=== PATIENT | female | born 1995 | race Caucasian/White ===

== ENCOUNTER 2018-01-26 10:17 | Outpatient (RCR) | payer OTHER, MEDICAID, SELFPAY ==
--- NOTE | 2018-01-26 17:11 | PT.OIE ---
Current Diagnoses Dorsalgia, unspecified (01/26/18) Past Medical History (Last Updated 12/16/17 @ 20:25 by Destiney Snyder) Acne (Chronic ~2010) Anxiety (Chronic ~2011) Depression (Chronic ~2011) Post traumatic stress disorder (PTSD) (Chronic ~2015) Past Surgical History (Last Updated 12/16/17 @ 20:25 by Destiney Snyder) Surgical procedure planned (Resolved) Provider Visit Care Team Role Provider Type Lillian Vines DO Attending Provider Physician Primary Care Provider Specialty: [facility] Address: [address] [place] [address], [facility] Email: [email or web address] Physical Therapy Initial Evaluation PT-OP-A Visit Information Start: 01/26/18 08:09 Freq: Status: Active Protocol: Document 01/26/18 10:33 [facility] (Rec: 01/26/18 17:11 [facility] [id number]) Out-Patient Physical Therapy Visit Information Visit Information Visit Type Initial Evaluation Visit Start Time 10:30 Visit Stop Time 11:15 Total Visit Minutes 45 Visit Number 1 Number of EDGER RUNNER Visits 0 PT-OP-B Current Condition Start: 01/26/18 08:09 Freq: Status: Active Protocol: Document 01/26/18 10:33 [facility] (Rec: 01/26/18 17:11 [facility] [id number]) Current Condition History of Current Condition Onset Date entire life, got really bad for the first tiem at [age] Current Complaints LBP at TL junction & QL region & upper thoracic & neck pain History of Current Condition Pt reports she has had LBP for her entire life and first got a really bad bout when she was 18 or 19. 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 Reports she now does yoga since that is what she has found to help her back the most. If she skips 1 day of yoga, her back will hurt really bad. She has had 5-6 really bad flare ups where she can barely move for days or weeks. She normally would go to the gym also, but has been unable d/t her aunt's condition. Prior Treatments and Tests Chiropractic in past- no major change; massage therapy- helped-insurance no longer covers PT-OP-C Subjective Start: 01/26/18 08:09 Freq: Status: Active Protocol: Document 01/26/18 10:33 [facility] (Rec: 01/26/18 17:11 [facility] [id number]) Patient Questionnaires Oswestry Low Back Index Oswestry Score 42 Oswestry Impairment 40 to 59% Impaired (Score 40- 59) OP-PT Pain Assessment Location Lower Back Pain Location Details TL junction & QL region L>R Intensity 9 Scale Used Numeric (1 - 10) Description Burning Shooting Frequency Frequent Pain Aggravating Factors Sitting Other Pain Aggravating Factors laying down, sleeping, running , biking (after) Pain Alleviating Factors Heat Other Pain Alleviating Factors yoga, standing in good posture , lidocane patches, CBD lotion , tiger balm PT-OP-F Manual Assessment Start: 01/26/18 08:09 Freq: Status: Active Protocol: Document 01/26/18 10:33 [facility] (Rec: 01/26/18 11:17 [facility] [id number]) Manual Assessments Soft Tissue Assessment Soft Tissue Mobility Assessment L>R ES, QL, Piriformis & glute ; R>L UT, LS & scalenes Joint Mobility Assessment Joint Mobility Assessment R greater trochanter higher than L, R iliac crest higher than L, R PSIS posterior PT-OP-J Posture/Palpation/Skin Start: 01/26/18 08:09 Freq: Status: Active Protocol: Document 01/26/18 10:33 [facility] (Rec: 01/26/18 11:17 [facility] [id number]) Posture Evaluation [facility] Postural Classification System Vance Postural Classifications Anterior/Posterior Vertebral Compression Test 0 Elbow Flexion Test 3 Lumbar Protective Mechanism Left AP 0 Lumbar Protective Mechanism Right AP 0 Lumbar Protective Mechanism Left PA 2 Lumbar Protective Mechanism Right PA 4 Comments Posture Comments Inc ext at TL junction in standing w/fwd head & shoulder PT-OP-K Range of Motion Start: 01/26/18 08:09 Freq: Status: Active Protocol: Document 01/26/18 10:33 [facility] (Rec: 01/26/18 11:17 [facility] [id number]) Cervical Spine Range of Motion Cervical Spine Active Degrees Testing Position Sitting Flexion 45 Extension 60 Rotation Left 60 Rotation Right 62 Lateral Flexion Left 35 Lateral Flexion Right 50 Comments flex tight; rot L & SB L painful & tight Lumbar Spine Range of Motion Lumbar Spine Active Degrees Testing Position standing Flexion 70 Extension 30 Rotation Left 60 Rotation Right 60 Lateral Flexion Left 25 Lateral Flexion Right 25 Comments ext & SB comes from TL junction PT-OP-L Special Tests Start: 01/26/18 08:09 Freq: Status: Active Protocol: Document 01/26/18 10:33 [facility] (Rec: 01/26/18 11:17 [facility] [id number]) Special Tests Lumbar Spine Special Tests Other- 1 Test Results positive B Comments ext sit Straight Leg Raise Test Results neg B Slump Test Results neg PT-OP-M Strength Start: 01/26/18 08:09 Freq: Status: Active Protocol: Document 01/26/18 10:33 [facility] (Rec: 01/26/18 11:17 [facility] [id number]) Hip Strength Hip Manual Muscle Testing Right Flexion (L2) 5 Normal Extension (S1) 4 Good Abduction 4- Good- External Rotation 5 Normal Internal Rotation 4 Good Comments 5/5 knee & ankles Left Flexion (L2) 5 Normal Extension (S1) 4 Good Abduction 4 Good External Rotation 4+ Good+ Internal Rotation 4 Good PT-OP-Q Treatments Start: 01/26/18 08:09 Freq: Status: Active Protocol: Document 01/26/18 10:33 [facility] (Rec: 01/26/18 17:11 [facility] [id number]) Therapeutic Activity Therapeutic Activity 2 Name s/l sleeping posture Comments edu on props & handouts given 1 Name Standing posture Comments adjusted and educated PT-OP-T Assessment and Plan Start: 01/26/18 08:09 Freq: Status: Active Protocol: Document 01/26/18 10:33 [facility] (Rec: 01/26/18 17:11 [facility] [id number]) Physical Therapy Assessment Rehab Potential Rehabilitation Potential Good Evaluation Complexity Number of Personal Factors/Comorbidities 1-2 Number of Body Systems Impaired 4 or More Clinical Presentation at Evaluation Evolving Impairments Impairments Activity Tolerance Functional Activities Gait Pain Posture ROM Soft Tissue Mobility Strength Goals Three Impairment strength Short Term Goal (STG) Indep with HEP STG Duration 02/25/18 Retirement Goal (LTG) 5/5 LE strength & VCT, EFT & LPM to demonstrate good core stability LTG Duration 03/28/18 Two Impairment neck and back pain Short Term Goal (STG) Dec pain for LB & neck to 6/10 STG Duration 02/25/18 Retirement Goal (LTG) Dec pain for LB & neck to worst of 2/10 LTG Duration 03/28/18 One Impairment YOJANA Endoscopy Technician Goal (LTG) to show improved functional ability LTG Duration 03/28/18 Assessment Summary Assessment Pt presents with chronic LBP and neck pain with poor posture & excessive movement at TL junction likely contributing to the pain. Pt would benefit from PT to inc mobility to thoracic & pelvis region and stabilize TL junction to encourage improved control over movements for pt . Physical Therapy Plan Frequency and Duration Frequency of Treatment 2x/Week Duration of Treatment 2 months Plan of Care Start Date 01/26/18 Plan of Care End Date 03/28/18 Therapeutic Interventions Therapeutic Interventions Balance Training Gait Training Home Exercise Program Joint Mobilizations Manual Therapy Self-Care/Home Management Soft Tissue Mobilization Taping Therapeutic Activities Therapeutic Exercises Modalities Cold Pack/Ice Massage Electric Stimulation Hot Packs Traction- Mechanical Ultrasound Next Visit Focus/Plan Next Note Type Treatment Note Next Visit Plan Supine core exercises, seated posture, pelvic MET & mobilizations & LB STM
--- NOTE | 2018-01-26 17:11 | PT.OPPOC ---
Current Diagnoses Dorsalgia, unspecified (01/26/18) Provider Visit Care Team Role Provider Type Lillian Vines DO Attending Provider Physician Primary Care Provider Specialty: Family Practice Address: [address] [place] [address], [id number] Email: [email or web address] Plan Of Care PT-OP-T Assessment and Plan Start: 01/26/18 08:09 Freq: Status: Active Protocol: Document 01/26/18 10:33 [facility] (Rec: 01/26/18 17:11 [facility] [id number]) Physical Therapy Assessment Rehab Potential Rehabilitation Potential Good Evaluation Complexity Number of Personal Factors/Comorbidities 1-2 Number of Body Systems Impaired 4 or More Clinical Presentation at Evaluation Evolving Impairments Impairments Activity Tolerance Functional Activities Gait Pain Posture ROM Soft Tissue Mobility Strength Goals Three Impairment strength Short Term Goal (STG) Indep with HEP STG Duration 02/25/18 Brick Tender Goal (LTG) 5/5 LE strength & VCT, EFT & LPM to demonstrate good core stability LTG Duration 03/28/18 Two Impairment neck and back pain Short Term Goal (STG) Dec pain for LB & neck to 6/10 STG Duration 02/25/18 Skilled Nursing Goal (LTG) Dec pain for LB & neck to worst of 2/10 LTG Duration 03/28/18 One Impairment YOJANA Brick Tender Goal (LTG) 6/50 to show improved functional ability LTG Duration 03/28/18 Assessment Summary Assessment Pt presents with chronic LBP and neck pain with poor posture & excessive movement at TL junction likely contributing to the pain. Pt would benefit from PT to inc mobility to thoracic & pelvis region and stabilize TL junction to encourage improved control over movements for pt . Physical Therapy Plan Frequency and Duration Frequency of Treatment 2x/Week Duration of Treatment 2 months Plan of Care Start Date 01/26/18 Plan of Care End Date 03/28/18 Therapeutic Interventions Therapeutic Interventions Balance Training Gait Training Home Exercise Program Joint Mobilizations Manual Therapy Self-Care/Home Management Soft Tissue Mobilization Taping Therapeutic Activities Therapeutic Exercises Modalities Cold Pack/Ice Massage Electric Stimulation Hot Packs Traction- Mechanical Ultrasound Next Visit Focus/Plan Next Note Type Treatment Note Next Visit Plan Supine core exercises, seated posture, pelvic MET & mobilizations & LB STM Plan of Care Dates Plan of Care Start Date 01/26/18 Plan of Care End Date 03/28/18 Please Sign and Return: I have reviewed this Plan of Care and certify that the skilled therapy services above are required to meet the patient?s needs. Physician Signature Date Printed Name and Credentials Clinical Instructor Signature Printed Name and Credentials
--- NOTE | 2018-03-02 11:56 | PT.OPDS ---
Current Diagnoses Dorsalgia, unspecified (01/26/18) Provider Visit Care Team Role Provider Type Lillian Vines DO Attending Provider Physician Primary Care Provider Specialty: Family Practice Address: [address] [place] [address], [id number] Email: [email or web address] Visit Number Visit Number 1 Discharge Summary PT-OP-B Current Condition Start: 01/26/18 08:09 Freq: Status: Active Protocol: Document 01/26/18 10:33 [facility] (Rec: 01/26/18 17:11 [facility] [id number]) Current Condition History of Current Condition Onset Date entire life, got really bad for the first tiem at [age] Current Complaints LBP at TL junction & QL region & upper thoracic & neck pain History of Current Condition Pt reports she has had LBP for her entire life and first got a really bad bout when she was 18 or 19. 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 Reports she now does yoga since that is what she has found to help her back the most. If she skips 1 day of yoga, her back will hurt really bad. She has had 5-6 really bad flare ups where she can barely move for days or weeks. She normally would go to the gym also, but has been unable d/t her aunt's condition. Prior Treatments and Tests Chiropractic in past- no major change; massage therapy- helped-insurance no longer covers PT-OP-C Subjective Start: 01/26/18 08:09 Freq: Status: Active Protocol: Document 01/26/18 10:33 [facility] (Rec: 01/26/18 17:11 [facility] [id number]) Patient Questionnaires Oswestry Low Back Index Oswestry Score 42 Oswestry Impairment 40 to 59% Impaired (Score 40- 59) OP-PT Pain Assessment Location Lower Back Pain Location Details TL junction & QL region L>R Intensity 9 Scale Used Numeric (1 - 10) Description Burning Shooting Frequency Frequent Pain Aggravating Factors Sitting Other Pain Aggravating Factors laying down, sleeping, running , biking (after) Pain Alleviating Factors Heat Other Pain Alleviating Factors yoga, standing in good posture , lidocane patches, CBD lotion , tiger balm PT-OP-F Manual Assessment Start: 01/26/18 08:09 Freq: Status: Active Protocol: Document 01/26/18 10:33 [facility] (Rec: 01/26/18 11:17 [facility] [id number]) Manual Assessments Soft Tissue Assessment Soft Tissue Mobility Assessment L>R ES, QL, Piriformis & glute ; R>L UT, LS & scalenes Joint Mobility Assessment Joint Mobility Assessment R greater trochanter higher than L, R iliac crest higher than L, R PSIS posterior PT-OP-J Posture/Palpation/Skin Start: 01/26/18 08:09 Freq: Status: Active Protocol: Document 01/26/18 10:33 [facility] (Rec: 01/26/18 11:17 [facility] [id number]) Posture Evaluation Vance Postural Classification System Vance Postural Classifications Anterior/Posterior Vertebral Compression Test 0 Elbow Flexion Test 3 Lumbar Protective Mechanism Left AP 0 Lumbar Protective Mechanism Right AP 0 Lumbar Protective Mechanism Left PA 2 Lumbar Protective Mechanism Right PA 4 Comments Posture Comments Inc ext at TL junction in standing w/fwd head & shoulder PT-OP-K Range of Motion Start: 01/26/18 08:09 Freq: Status: Active Protocol: Document 01/26/18 10:33 [facility] (Rec: 01/26/18 11:17 [facility] [id number]) Cervical Spine Range of Motion Cervical Spine Active Degrees Testing Position Sitting Flexion 45 Extension 60 Rotation Left 60 Rotation Right 62 Lateral Flexion Left 35 Lateral Flexion Right 50 Comments flex tight; rot L & SB L painful & tight Lumbar Spine Range of Motion Lumbar Spine Active Degrees Testing Position standing Flexion 70 Extension 30 Rotation Left 60 Rotation Right 60 Lateral Flexion Left 25 Lateral Flexion Right 25 Comments ext & SB comes from TL junction PT-OP-L Special Tests Start: 01/26/18 08:09 Freq: Status: Active Protocol: Document 01/26/18 10:33 [facility] (Rec: 01/26/18 11:17 [facility] [id number]) Special Tests Lumbar Spine Special Tests Other- 1 Test Results positive B Comments ext sit Straight Leg Raise Test Results neg B Slump Test Results neg PT-OP-M Strength Start: 01/26/18 08:09 Freq: Status: Active Protocol: Document 01/26/18 10:33 [facility] (Rec: 01/26/18 11:17 [facility] [id number]) Hip Strength Hip Manual Muscle Testing Right Flexion (L2) 5 Normal Extension (S1) 4 Good Abduction 4- Good- External Rotation 5 Normal Internal Rotation 4 Good Comments 5/5 knee & ankles Left Flexion (L2) 5 Normal Extension (S1) 4 Good Abduction 4 Good External Rotation 4+ Good+ Internal Rotation 4 Good PT-OP-T Assessment and Plan Start: 01/26/18 08:09 Freq: Status: Active Protocol: Document 03/02/18 11:55 [facility] (Rec: 03/02/18 11:56 [facility] [id number]) Physical Therapy Plan Discharge Physical Therapy Discharge Reasons No Longer Attending PT Discharge Comments Pt no showed 2 appointments and left messages. All other appointments have been cancelled.
== END 2018-04-23 09:14 ==
LOC: PHYS 10:17
PROVIDERS: PCP Family Medicine; Visit Provider Family Medicine
DX: M54.9 Dorsalgia, unspecified (principal)
CPT/HCPCS: 97162; 97530

== ENCOUNTER → 2018-08-10 14:19 | Outpatient (CLI) | payer OTHER, MEDICAID, SELFPAY ==
[2018-08-10 15:04] LABS: Blood Urea Nitrogen 8 mg/dL (7-17); Calcium 9.7 mg/dL (8.4-10.2); Carbon Dioxide 27 mmol/L (22-32); Chloride 103 mmol/L (98-107); Estimated Glomerular Filt Rate > 60.0 mL/min (>60); Glucose 83 mg/dL (70-100); HEMOLYSIS < 15 (0-50); Potassium 4.6 mmol/L (3.4-5.1); Sodium 141 mmol/L (137-145)
[2018-08-12 15:09] LABS: Insulin Level Total 9.3 uIU/mL (2.0-19.6)
== END ==
PROVIDERS: PCP Family Medicine; Visit Provider Family Medicine
DX: E16.2 Hypoglycemia, unspecified (principal)
CPT/HCPCS: 36415; 80048; 83525

== ENCOUNTER 2018-08-16 20:36 | Emergency (ER) | payer OTHER, MEDICAID, SELFPAY ==
[2018-08-16 20:38] VITALS: BP 138/88; PULSE 105; RESP 32; TEMP 36.7; O2SAT 100
--- NOTE | 2018-08-16 20:48 | ED_ITS ---
HPI - SOB/Dyspnea General Chief Complaint: Shortness of Breath/Dyspnea Stated Complaint: SOB Time Seen by Provider: 08/16/18 20:48 Source: patient Mode of arrival: ambulatory Limitations: no limitations History of Present Illness Patient is an otherwise healthy 23-year-old female here for evaluation of respiratory distress. Patient states that as the day has gone on she has had problems breathing and wheezing. Has never had any respiratory issues in the past. No diagnosis of asthma or COPD. She states she does smoke marijuana but not cigarettes. No rashes. No recent travel. She is on control. No swelling in her legs. Related Data Previous Rx's Medication Instructions Recorded prednisone 40 mg PO DAILY 5 Days #10 tab 08/16/18 Allergies Allergy/AdvReac Type Severity Reaction Status Date / Time No Known Drug Allergies Allergy Verified 07/28/18 11:11 Review of Systems Constitutional Denies fever(s) Eyes Denies itchy eyes ENT Ears, Nose, Mouth, and Throat: Denies dizziness, Denies lip swelling and Denies throat swelling Cardiovascular Denies chest pain, Denies edema, Denies palpitations, Reports dyspnea and Reports dyspnea on exertion Respiratory Denies change in phlegm color, Reports cough, Reports dyspnea, Reports dyspnea on exertion and Reports wheezing Gastrointestinal Gastrointestinal: Denies abdominal pain, Denies nausea and Denies vomiting Musculoskeletal Denies myalgias and Denies arthralgias Integumentary/Breasts Denies rash Neurologic Denies dizziness Endocrine Denies palpitations Hematologic/Lymphatic Denies easy bleeding and Denies easy bruising Allergic/Immunologic Denies urticaria, Denies itchy eyes, Denies lip swelling, Denies throat swelling and Reports wheezing [facility] Medical History Bipolar II disorder (Acute) Acne (Chronic ~2010) Anxiety (Chronic ~2011) Depression (Chronic ~2011) Post traumatic stress disorder (PTSD) (Chronic ~2015) Surgical History Surgical procedure planned (Resolved) Family History Grandfather Diabetes mellitus Hyperlipidemia Grandmother Heart disease Hyperlipidemia Hypertension Mental health problem Grandfather Heart disease Hyperlipidemia Hypertension Grandmother Mental health problem Social History Smoking Status: Current every day smoker Tobacco: How many years used: 1 quit status: considering quitting Family History Grandfather Diabetes mellitus Hyperlipidemia Grandmother Heart disease Hyperlipidemia Hypertension Mental health problem Grandfather Heart disease Hyperlipidemia Hypertension Grandmother Mental health problem Social History Smoking Status: Current every day smoker Tobacco: How many years used: 1 quit status: considering quitting Exam Initial Vital Signs Initial Vital Signs: Vital Signs Temperature 98.1 F 08/16/18 20:38 Pulse Rate 105 H 08/16/18 20:38 Respiratory Rate 32 H 08/16/18 20:38 Blood Pressure 138/88 08/16/18 20:38 Pulse Oximetry 100 08/16/18 20:38 Const General: cooperative, well groomed and in distress Orientation: alert, awake and oriented x3 HENMT Head: normal to inspection and normocephalic Resp Effort & Inspection: cough, labored, respiratory distress, no retractions and tachypneic Auscultation: wheezes Cardio Rate: tachycardic Rhythm: regular rhythm GI Inspection: non-distended Skin Lesions: no lesions Rashes: no rashes Neuro General: alert, awake and oriented x3 Cognition: normal cognition Extrem General: normal to inspection and capillary refill normal Psych Appearance: grossly normal and well kempt Scores GCS [place] coma scale eye opening: Spontaneous [place] coma scale verbal response: Orientated [place] coma scale motor response: Obey commands [place] coma scale total score: 15 PERC Score Age greater than or equal to 50 years: No Heart rate greater than or equal to 100 bpm: Yes Room Air O2 Sat less than 95%: Yes Unilateral leg swelling: No Recent trauma or surgery: No Hemoptysis: No Prior PE or DVT: No Hormone Use: Yes Total PERC Score: 3 Course Orders Ordered: ED Orders 08/16/18 20:49 XR chest 1V Stat EKG-12 Lead Stat RT Consult Eval and Treat Now 08/16/18 21:10 CT angio chest PE protocol Stat 08/16/18 21:30 B Type Natriuretic Peptide Stat Complete Blood Count AUTO DIFF Stat Comprehensive Metabolic Panel Stat Lipase Stat Partial Thromboplastin Time Stat Prothrombin Time INR Stat Troponin I Stat 08/16/18 21:40 Influenza A and B by PCR Rapid Stat Discontinued Medications Albuterol (Ventolin Hfa Prepack) 1 box MISC SEEINSTR ONE Stop: 08/16/18 23:29 Last Admin: 08/16/18 23:44 Dose: 1 box Albuterol/Ipratropium (Duoneb) 3 ml INH NOW ONE Stop: 08/16/18 20:49 Last Admin: 08/16/18 20:52 Dose: 3 ml Albuterol/Ipratropium (Duoneb) 6 ml INH NOW ONE Stop: 08/16/18 21:07 Last Admin: 08/16/18 21:08 Dose: 6 ml Sodium Chloride (Normal Saline 0.9%) 1,000 mls @ 1,000 mls/hr IV BOLUS ONE Stop: 08/16/18 21:47 Last Infusion: 08/16/18 23:25 Dose: 0 mls/hr Admin: 08/16/18 21:36 Dose: 1,000 mls/hr Methylprednisolone (Solu-Medrol 125 Mg Vial) 125 mg IV NOW ONE Stop: 08/16/18 21:09 Last Admin: 08/16/18 21:36 Dose: 125 mg Vital Signs - 8 hr 08/16/18 20:38 08/16/18 20:52 08/16/18 21:08 Temperature 98.1 F Pulse Rate 105 H 83 111 H Respiratory Rate 32 H 20 18 Blood Pressure 138/88 Pulse Oximetry 100 99 99 08/17/18 00:12 Temperature Pulse Rate 68 Respiratory Rate 20 Blood Pressure 122/68 Pulse Oximetry 98 MDM - SOB/Dyspnea Lab Data Attestation: I reviewed the patient's lab results. Result diagrams: 08/16/18 21:30 08/16/18 21:30 Lab Results 08/16/18 08/16/18 08/16/18 Range/Units 21:30 21:30 21:30 WBC 10.8 (4.5-11.0) X10^3/uL RBC 5.40 H (4.0-5.2) X10^6/uL Hgb 16.2 H (12.0-16.0) g/dL Hct 46.4 H (36-46) % MCV 85.9 (80-100) fL MCH 30.0 (26-34) PG MCHC 34.9 (30-36) % RDW 12.9 (11.6-14.8) % Plt Count 266 (150-400) X10^3/uL Neut % (Auto) 56.5 (50-75) % Lymph % (Auto) 28.3 (25-40) % [place] % (Auto) 8.6 (3-14) % Eos % (Auto) 6.0 H (2-4) % Baso % (Auto) 0.6 (0-2) % Neut # (Auto) 6100 (9827-0358) /uL Lymph # (Auto) 3000 (6950-3033) /uL [place] # (Auto) 900 (0-900) /uL Eos # (Auto) 600 H (0-450) /uL Baso # (Auto) 100 (0-100) /uL PT 12.5 (10.1-12.7) SECONDS INR 1.1 (0.9-1.3) APTT 31 (26.4-36.2) SECONDS Sodium 141 (137-145) mmol/L Potassium 3.1 L D (3.4-5.1) mmol/L Chloride 106 (98-107) mmol/L Carbon Dioxide 22 (22-32) mmol/L BUN 6 L (7-17) mg/dL Creatinine 0.50 L (0.52-1.04) mg/dL Estimated GFR > 60.0 (>60) mL/min BUN/Creatinine Ratio 12.0 (6-22) Glucose 106 H (70-100) mg/dL Calcium 10.0 (8.4-10.2) mg/dL Total Bilirubin 0.5 (0.2-1.3) mg/dL AST 20 (14-36) IU/L ALT 19 (9-52) IU/L Alkaline Phosphatase 94 (38-126) U/L Troponin I < 0.012 (0.01-0.034) ng/mL B-Natriuretic Peptide < 100 (<100) Total Protein 8.0 (6.3-8.2) g/dL Albumin 4.9 (3.5-5.0) g/dL Globulin 3.1 (1.7-4.1) g/dL Albumin/Globulin Ratio 1.6 (1.0-2.8) Lipase 47 (23-300) U/L Influenza A & B (PCR) (Negative) 08/16/18 Range/Units 21:40 WBC (4.5-11.0) X10^3/uL RBC (4.0-5.2) X10^6/uL Hgb (12.0-16.0) g/dL Hct (36-46) % MCV (80-100) fL MCH (26-34) PG MCHC (30-36) % RDW (11.6-14.8) % Plt Count (150-400) X10^3/uL Neut % (Auto) (50-75) % Lymph % (Auto) (25-40) % [place] % (Auto) (3-14) % Eos % (Auto) (2-4) % Baso % (Auto) (0-2) % Neut # (Auto) (9424-2265) /uL Lymph # (Auto) (7000-1524) /uL [place] # (Auto) (0-900) /uL Eos # (Auto) (0-450) /uL Baso # (Auto) (0-100) /uL PT (10.1-12.7) SECONDS INR (0.9-1.3) APTT (26.4-36.2) SECONDS Sodium (137-145) mmol/L Potassium (3.4-5.1) mmol/L Chloride (98-107) mmol/L Carbon Dioxide (22-32) mmol/L BUN (7-17) mg/dL Creatinine (0.52-1.04) mg/dL Estimated GFR (>60) mL/min BUN/Creatinine Ratio (6-22) Glucose (70-100) mg/dL Calcium (8.4-10.2) mg/dL Total Bilirubin (0.2-1.3) mg/dL AST (14-36) IU/L ALT (9-52) IU/L Alkaline Phosphatase (38-126) U/L Troponin I (0.01-0.034) ng/mL B-Natriuretic Peptide (<100) Total Protein (6.3-8.2) g/dL Albumin (3.5-5.0) g/dL Globulin (1.7-4.1) g/dL Albumin/Globulin Ratio (1.0-2.8) Lipase (23-300) U/L Influenza A & B (PCR) Negative (Negative) Imaging Data Chest x-ray: Radiologist's impression: [address] [address] XRay Report Signed Patient: Holley Rosales EMR#: [id number] : 1995Acct:[id number] Age/Sex: 23 / FDate of Service: 08/16/18 Loc: ED Accession Number: [id number] Procedure: XR chest 1V Ordering Provider: Anil Rea D.O. PROCEDURE: XR CHEST 1V INDICATIONS: Shortness of breath TECHNIQUE: One view of the chest was acquired. COMPARISON: [facility], , XR CXR 2 VIEW, 07/24/1997, 14:37. FINDINGS: Surgical changes and devices: None. Lungs and pleura: Lungs are clear. No pleural effusions or pneumothorax. Mediastinum: Mediastinal contours appear normal. Heart size is normal. Bones and chest wall: No suspicious bony lesions. Overlying soft tissues appear unremarkable. IMPRESSION: 1. No acute cardiopulmonary disease. Dictated by: Gage Clay M.D. on 08/16/2018 at 21:26 Approved by: Gage Clay M.D. on 08/16/2018 at 21:26 CT scan - chest: Radiologist's impression: No acute central pulmonary embolism. Suboptimal pulmonary artery opacification and distal pulmonary embolism is not excluded. No consolidation, no pleural effusion, or pneumothorax ECG Data Attestation: I personally reviewed and interpreted this ECG as follows: Prior ECG tracings: not available for review Interpretation: Sinus rhythm Ventricular rate 88 Normal axis Normal intervals Normal QRS Normal QTC No ST T wave changes MDM Narrative Medical decision making narrative: Patient had received 1 neb prior to my evaluation of her and was receiving 2 more nebs at the time my evaluation. Patient was in moderate respiratory distress. Chest x-ray is unremarkable. CT scan of the chest showed no signs of pulmonary embolism. This was done secondary to her presentation, no prior history of reactive airway disease, use of hormone, tachycardia. Patient also received steroids. After multiple nebulizer treatments patient's respiratory status improved to the point where she was much more comfortable. Was not hypoxic. Clear lung exam. Was not tachypneic. Her physical exam was not consistent with anaphylaxis. No signs of pneumonia. No indication for antibiotics. I suspect that she had reactive airway from an environmental trigger. Will send home with a albuterol and spacer instructions of how to take this. Also sent home with a prescription for steroids for the next couple days. Patient was given return precautions. Instructed to follow up with her primary doctor. She expressed understanding and agreement plan. Discharge Plan Departure Patient Disposition: Home Clinical Impression: Wheezing Discharge Date/Time: 08/17/18 00:12 Interventions: ED Discharge Assessment Last Done: 08/17/18 00:12 Instructions: DI for Shortness of Breath Activity Restrictions/Additional Instructions: Take the steroids starting 08/17/18. Use the albuterol as directed. Return to the emergency department for any new or worsening symptoms Prescriptions: New prednisone 20 mg tablet 40 mg PO DAILY 5 Days Qty: 10 RF: 0 Referrals: Lillian Vines DO [Primary Care Provider] -
[2018-08-16 20:52] VITALS: PULSE 83; RESP 20; O2SAT 99
[2018-08-16] MEDS: ALBUTEROL/IPRATROPIUM 3 ML AMPUL INH (20:52)
[2018-08-16 21:08] VITALS: PULSE 111; RESP 18; O2SAT 99
[2018-08-16] MEDS: ALBUTEROL/IPRATROPIUM 3 ML AMPUL 6 ML INH (21:08)
--- NOTE | 2018-08-16 21:10 | DI.CT.S_ITS ---
PROCEDURE: CT ANGIO CHEST PE PROTOCOL INDICATIONS: Chest pain, shortness of breath, tachycardia TECHNIQUE: After the administration of intravenous contrast, 2 mm thick sections acquired from the pulmonary apices to the posterior costophrenic angles. 3-dimensional maximum intensity projection (MIP) coronal and sagittal reformats were then acquired through the thorax. For radiation dose reduction, the following was used: automated exposure control, adjustment of mA and/or kV according to patient size. COMPARISON: None. FINDINGS: Image quality: Excellent. Pulmonary arteries: Main pulmonary outflow tract and central pulmonary arteries appear normal without filling defects. There is heterogeneous opacification, potentially due to contrast mixing artifact at the origin of the left anterior basal segmental pulmonary arteries, and suboptimal opacification of bilateral distal subsegmental pulmonary arteries. Lungs and pleura: Lungs are clear. No pleural effusions or pneumothorax. Central and peripheral airways are patent. Mediastinum: Heart size is normal, without pericardial effusion. No mediastinal or hilar adenopathy. Thoracic aorta is normal in caliber and enhancement. Esophagus is normal in caliber, without hiatal hernia. Bones and chest wall: No suspicious bony lesions. Ribs and thoracic spine appear intact throughout. Thyroid gland is normal. No axillary or supraclavicular adenopathy. Abdomen: Visualized upper abdominal solid organs appear normal in the early arterial phase of enhancement. IMPRESSION: 1. No large central pulmonary embolus, although there is heterogeneous opacification in segmental and subsegmental pulmonary arteries. A distal pulmonary embolus is not excluded. 2. Clear lungs without secondary signs of pulmonary infarct. Concordant with preliminary report Dictated by: Brandi Ortega M.D. on 08/17/2018 at 8:14 Approved by: Brandi Ortega M.D. on 08/17/2018 at 8:28
[2018-08-16] MEDS: methylPREDNISolone 125 MG/2 ML VIAL IV (21:36)
[2018-08-16] MEDS: SODIUM CHLORIDE 0.9% 1,000 ML 1000 ML IV (21:36)
[2018-08-16 21:37] LABS: Add Manual Diff / Slide Review NO; Basophils Absolute Auto 100 /uL (0-100); Basophils Percent Auto 0.6 % (0-2); Eosinophils Absolute Auto 600 /uL (0-450); Hematocrit 46.4 % (36-46); Hemoglobin 16.2 g/dL (12.0-16.0); Lymphocytes Absolute Auto 3000 /uL (1100-4500); Lymphocytes Percent Auto 28.3 % (25-40); Mean Corpuscular HGB Conc 34.9 % (30-36); Mean Corpuscular Volume 85.9 fL (80-100); Monocytes Absolute Auto 900 /uL (0-900); Monocytes Percent Auto 8.6 % (3-14); Neutrophils Absolute Auto 6100 /uL (1500-7000); Neutrophils Percent Auto 56.5 % (50-75); Platelet Count 266 X10^3/uL (150-400); Red Cell Distribution Width 12.9 % (11.6-14.8); White Blood Cell Count 10.8 X10^3/uL (4.5-11.0)
[2018-08-16 21:53] LABS: INR 1.1 (0.9-1.3); Prothrombin Time 12.5 SECONDS (10.1-12.7)
[2018-08-16 21:56] LABS: PTT Partial Thromboplastin Tim 31 SECONDS (26.4-36.2)
[2018-08-16 21:57] LABS: Alanine Aminotransferase 19 IU/L (9-52); Albumin 4.9 g/dL (3.5-5.0); Albumin Globulin Ratio 1.6 (1.0-2.8); Alkaline Phosphatase 94 U/L (38-126); Aspartate Aminotransferase 20 IU/L (14-36); Bilirubin Total 0.5 mg/dL (0.2-1.3); Blood Urea Nitrogen 6 mg/dL (7-17); Carbon Dioxide 22 mmol/L (22-32); Chloride 106 mmol/L (98-107); Estimated Glomerular Filt Rate > 60.0 mL/min (>60); Globulin 3.1 g/dL (1.7-4.1); Glucose 106 mg/dL (70-100); HEMOLYSIS 19 (0-50); Lipase 47 U/L (23-300); Potassium 3.1 mmol/L (3.4-5.1); Sodium 141 mmol/L (137-145)
[2018-08-16 22:03] LABS: Influenza A and B by PCR Rapid Negative (Negative)
[2018-08-16 22:07] LABS: B Type Natriuretic Peptide < 100 (<100)
[2018-08-16 22:08] LABS: Troponin I < 0.012 ng/mL (0.01-0.034)
[2018-08-16] MEDS: ALBUTEROL HFA PREPACK 1 BOX MISC (23:44)
[2018-08-17 00:12] VITALS: BP 122/68; PULSE 68; RESP 20; O2SAT 98
== END 2018-08-17 00:12 | disposition home or self-care (01) ==
PROVIDERS: Emergency Provider Emergency Medicine; PCP Family Medicine
DX: R06.02 Shortness of breath (principal)
CPT/HCPCS: 71045; 71275; 80053; 83690; 83880; 84484; 85025; 85610; 85730; 87400; 93005; 94150; 94640; 96361; 96374; 99283; 99285; J2930; Q9967

== ENCOUNTER → 2019-01-31 11:01 | Outpatient (CLI) | payer OTHER, MEDICAID, SELFPAY ==
[2019-01-31 11:49] LABS: Add Manual Diff / Slide Review NO; Basophils Absolute Auto 0 /uL (0-100); Basophils Percent Auto 0.7 % (0-2); Eosinophils Absolute Auto 600 /uL (0-450); Eosinophils Percent Auto 8.7 % (2-4); Hematocrit 45.1 % (36-46); Hemoglobin 15.3 g/dL (12.0-16.0); Lymphocytes Absolute Auto 2400 /uL (1100-4500); Lymphocytes Percent Auto 34.2 % (25-40); Mean Corpuscular HGB Conc 33.8 % (30-36); Mean Corpuscular Hemoglobin 29.4 PG (26-34); Monocytes Absolute Auto 400 /uL (0-900); Monocytes Percent Auto 5.4 % (3-14); Neutrophils Absolute Auto 3500 /uL (1500-7000); Platelet Count 291 X10^3/uL (150-400); Red Blood Cell Count 5.19 X10^6/uL (4.0-5.2); Red Cell Distribution Width 12.5 % (11.6-14.8); White Blood Cell Count 6.9 X10^3/uL (4.5-11.0)
[2019-01-31 12:03] LABS: Alanine Aminotransferase 16 IU/L (9-52); Albumin Globulin Ratio 1.7 (1.0-2.8); Alkaline Phosphatase 65 U/L (38-126); Aspartate Aminotransferase 20 IU/L (14-36); BUN Creatinine Ratio 13.3 (6-22); Bilirubin Total 0.6 mg/dL (0.2-1.3); Blood Urea Nitrogen 8 mg/dL (7-17); Carbon Dioxide 26 mmol/L (22-32); Chloride 103 mmol/L (98-107); Estimated Glomerular Filt Rate > 60.0 mL/min (>60); Globulin 2.9 g/dL (1.7-4.1); Glucose 89 mg/dL (70-100); HEMOLYSIS < 15 (0-50); Potassium 4.5 mmol/L (3.4-5.1); Sodium 141 mmol/L (137-145); Total Protein 7.9 g/dL (6.3-8.2)
[2019-01-31 12:38] LABS: Vitamin D 25 Hydroxy (D3) 39.8 ng/mL (30.0-100.0)
[2019-01-31 12:48] LABS: Vitamin B12 436 pg/mL (239-931)
[2019-01-31 12:53] LABS: TSH w/ Reflex to FT4 2.02 uIU/mL (0.47-4.68)
[2019-02-02 14:20] LABS: Urea Breath Test >18YRS NOT DETECTED
[2019-02-02 16:07] LABS: Folate, RBC 687 ng/mL RBC (> 280)
== END ==
PROVIDERS: PCP Family Medicine; Visit Provider Family Medicine
DX: N94.6 Dysmenorrhea, unspecified (principal); R11.2 Nausea with vomiting, unspecified; R19.7 Diarrhea, unspecified; R53.83 Other fatigue; M81.0 Age-related osteoporosis without current pathological fracture
CPT/HCPCS: 36415; 80053; 82306; 82607; 82747; 83013; 84443; 85025

== ENCOUNTER 2019-04-26 13:45 | Outpatient (RCR) | payer OTHER, MEDICAID, SELFPAY ==
--- NOTE | 2019-02-01 12:26 | PT.OIE ---
Current Diagnoses Dorsalgia, unspecified (02/01/19) Past Medical History (Last Reviewed 08/17/18 @ 03:27 by Anil Rea DO) Acne (Chronic ~2010) Anxiety (Chronic ~2011) Bipolar II disorder (Acute) Depression (Chronic ~2011) Nexplanon in place (Acute) Post traumatic stress disorder (PTSD) (Chronic ~2015) Past Surgical History (Last Updated 12/16/17 @ 20:25 by Destiney Snyder) Surgical procedure planned (Resolved) Visit Care Team Role Provider Type Lillian Vines DO Attending Provider Physician Primary Care Provider Specialty: Family Practice Address: [address] [place] [address], [address], [facility] Email: [email or web address] Physical Therapy Initial Evaluation PT-OP-A Visit Information Start: 02/01/19 08:01 Freq: Status: Active Protocol: Document 02/01/19 10:35 HH (Rec: 02/01/19 12:26 [email or web address]) Out-Patient Physical Therapy Visit Information Visit Information Visit Type Initial Evaluation Visit Note pt is waiting for auth to have further visits. Visit Start Time 10:35 Visit Stop Time 11:15 Total Visit Minutes 40 Visit Number 1 Number of QUAL FIELD MANAGER Visits 0 Evaluation Information Evaluation Date 02/01/19 PT-OP-B Current Condition Start: 02/01/19 08:01 Freq: Status: Active Protocol: Document 02/01/19 10:35 HH (Rec: 02/01/19 12:26 [email or web address]) Current Condition History of Current Condition Onset Date since 17 yo Current Complaints chronic LBP, radiating L LE pain History of Current Condition Pt is a 23yo female that presents to clinic with chronic LBP and radiating R leg pain since she was 17yo. She states she started having achy and dull pain at center of lower back L>R who had difficulty to get out of bed for 2 months, and she went to see chiropractor who stated pt has L side curvature and protruded segments on lumbar region. She reports she did get better but her pain never goes away. Her pain has gotten worse since 3 months ago after she stopped working out and doing yoga. Her pain occasionally radiate to L side of the thigh and medial ankle . She stated her pain feels relieved with back stretch/ back decompression but worse with prolonged sitting and standing/ sleeing on L side. She went to ER last month due to unknown difficulty in breathing. CT scan showed negative findings, but her chiropractor visit from couple days ago stated she has protrusion at lumbar segments. Pt had PT eval last year but unable to get more visits due to limited insurance coverage. 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 Prior Treatments and Tests CT Scan = negative findings x-ray= negative findings chiropractor who stated pt has L side curvature and protruded segments on lumbar region Treatment Goals Patient/Caregiver Goals 1. To be pain free during daily activitive 2. to return being a patient care technician instructor and workout >3times a week Prior Functional Status Baseline Function- ADL's Independent Baseline Function- Mobility Independent Personal Factors Other Personal Factors That May Effect depression Therapy/Recovery psychological disorder PT-OP-C Subjective Start: 02/01/19 08:01 Freq: Status: Active Protocol: Document 02/01/19 10:35 (Rec: 02/01/19 12:26 [email or web address]) OP-PT Subjective Patient Comments Patient Comments i want to get rid of my back pain Patient Questionnaires Oswestry Low Back Index Oswestry Score 52 Oswestry Impairment 40 to 59% Impaired (Score 40- 59) OP-PT Pain Assessment Location lower back 2 Intensity 7 Scale Used Numeric (1 - 10) Description Aching,Dull Frequency Constant Pain Aggravating Factors Position,Activity,Exercise, Standing,Sitting,Bending, Lifting Pain Alleviating Factors Massage Other Pain Alleviating Factors decompression and bending PT-OP-F Manual Assessment Start: 02/01/19 08:01 Freq: Status: Active Protocol: Document 02/01/19 10:35 HH (Rec: 02/01/19 12:26 [email or web address]) Manual Assessments Soft Tissue Assessment Soft Tissue Mobility Assessment Significant tenderness to pressure at L parapsinals, QL and L1-L4 segments Joint Mobility Assessment Joint Mobility Assessment decreased joint mobility during lateral flexion at lumbar segements. PT-OP-J Posture/Palpation/Skin Start: 02/01/19 08:01 Freq: Status: Active Protocol: Document 02/01/19 10:35 HH (Rec: 02/01/19 12:26 [email or web address]) Posture Evaluation Position Standing Head/C-Spine Posture Forward Head Shoulder Posture (L) Rounded,(R) Rounded,(R) Elevated Hip Posture (L) Internally Rotated,(R) Externally Rotated PT-OP-K Range of Motion Start: 02/01/19 08:01 Freq: Status: Active Protocol: Document 02/01/19 10:35 HH (Rec: 02/01/19 12:26 [email or web address]) Lumbar Spine Range of Motion Lumbar Spine Percentage Testing Position Standing Flexion 80 Extension 80 Rotation Left 90 Rotation Right 90 Lateral Flexion Left 50 Lateral Flexion Right 50 ROM Limitations Bony Restriction Comments decreased segmental mobility during lateral flexion at lumbar segements. Active Degrees Flexion 70 Extension 60 PT-OP-L Special Tests Start: 02/01/19 08:01 Freq: Status: Active Protocol: Document 02/01/19 10:35 HH (Rec: 02/01/19 12:26 [email or web address]) Special Tests Lumbar Spine Special Tests Brennen Test Results -ve standing hip extension Test Results +VE on L Comments pain on L side with lumbar L rotation standing hip flexion Test Results +VE on L Comments pain on L side with lumbar L rotation Prone Instability Test Test Results +VE B Comments pain on L side. Straight Leg Raise Test Results +ve B Comments pain on L side. PT-OP-M Strength Start: 02/01/19 08:01 Freq: Status: Active Protocol: Document 02/01/19 10:35 HH (Rec: 02/01/19 12:26 [email or web address]) Hip Strength Hip Manual Muscle Testing Left Flexion (L2) 5 Normal Extension (S1) 4+ Good+ Abduction 4+ Good+ Adduction 5 Normal Right Flexion (L2) 5 Normal Extension (S1) 5 Normal Abduction 5 Normal Adduction 5 Normal PT-OP-Q Treatments Start: 02/01/19 08:01 Freq: Status: Active Protocol: Document 02/01/19 10:35 HH (Rec: 02/01/19 12:26 [email or web address]) Therapeutic Exercises Supine Exercises SLR Side bilateral Comments for HEP, cues on PPT and abdominal activatio without paraspinals engagement Prone Exercises prone bird dog Prone Exercise Name prone hip extension Side bilateral Comments for HEP, cues on gluteal activation without paraspinals engagement PT-OP-T Assessment and Plan Start: 02/01/19 08:01 Freq: Status: Active Protocol: Document 02/01/19 10:35 HH (Rec: 02/01/19 12:26 [email or web address]) Physical Therapy Assessment Rehab Potential Rehabilitation Potential Excellent Evaluation Complexity Number of Personal Factors/Comorbidities 1-2 Number of Body Systems Impaired 1-2 Clinical Presentation at Evaluation Stable Impairments Impairments Activity Tolerance,Functional Mobility,Gait,Pain,Posture, Soft Tissue Mobility,Strength Other Concerns Barriers to Rehabilitation depression psychological disorder Goals return to PLOF Impairment pt is unable to participate in yoga and workout routine Short Term Goal (STG) Pt will be able to dedrick yoga and workout 2 times a week with LBP no more than 4/10. STG Duration 5 weeks Penitentiary Goal (LTG) Pt will be fully able to dedrick yoga and workout 4 times a week with LBP no more than 2/ 10. LTG Duration 10 weeks HEP Impairment Pt does not have a HEP Power Plant Superintendent Goal (LTG) Pt will comply to HEP safely and independently to improver her trunk stability and muscular control LTG Duration 8 weeks activity tolerance Impairment pt unable to sit/ stand >20 minutes without pain Short Term Goal (STG) Pt will be able to sit/ stand >20 mins without increase in symptoms STG Duration 5 weeks Penitentiary Goal (LTG) Pt will be able to sit/ stand >40 mins without increase in symptoms LTG Duration 10 weeks Oswestry LBP Impairment pt scores 52/100 (40-59% impairment) on Oswestry LBP questionnaire Short Term Goal (STG) pt will score <40/100 on Oswestry LBP questionnaire to improve her quality of life STG Duration 5 weeks Penitentiary Goal (LTG) pt scores <20/100 on Oswestry LBP questionnaire to improve her quality of life LTG Duration 10 weeks Assessment Summary Assessment Pt is a low complexity with her chronic back pain and radiating pain to L thigh. Upon assessment, pt presents deficits on trunk stability and neuromuscular control. During active L hip flexion and extension, pt presents increase L trunk rotation and extension which reproduced her achy back pain. +ve findings on prone instability and SLR who reports of reduced pain with proper manual and verbal cues on gluteal and abdominal engagement. Educated pt to use her own hands to palpate paraspinals muscles to facilitate relaxation during bird dog and SLR exercises. Pt will be a good candidate for skilled physical therapy to improve her neuromuscular control, dynamic trunk stability, L hip strength, and decrease activation of L paraspinals and QL. Physical Therapy Plan Frequency and Duration Frequency of Treatment 2x/Week Duration of Treatment 10 [place] Plan of Care Start Date 02/01/19 Plan of Care End Date 04/17/19 Therapeutic Interventions Therapeutic Interventions Balance Training,Gait Training ,Home Exercise Program,Joint Mobilizations,Manual Therapy, Neuromuscular Re-education, Patient/Caregiver Education, Self-Care/Home Management,Soft Tissue Mobilization,Taping, Therapeutic Activities, Therapeutic Exercises Modalities Electric Stimulation,Hot Packs ,Infrared Therapy,Traction- Mechanical,Ultrasound Next Visit Focus/Plan Next Note Type Treatment Note Next Visit Plan review HEP bird dog, SLR manual and verbal cue on hip AROM without lumbar muscles compensation assess gait static and dynamic trunk stability
--- NOTE | 2019-02-03 16:50 | PT.OTN ---
Current Diagnoses Dorsalgia, unspecified (02/03/19) Physical Therapy Treatment Note PT-OP-A Visit Information Start: 02/01/19 08:01 Freq: Status: Active Protocol: Document 02/03/19 16:45 HH (Rec: 02/03/19 18:30 HH [email or web address]) Out-Patient Physical Therapy Visit Information Visit Information Visit Type Treatment Note Visit Start Time 16:45 Visit Stop Time 15:28 Total Visit Minutes 43 Visit Number / Number of RECEPTIONIST SECRETARY Visits 0 PT-OP-B Current Condition Start: 02/01/19 08:01 Freq: Status: Active Protocol: Document 02/01/19 10:35 HH (Rec: 02/01/19 12:26 HH [email or web address]) Current Condition History of Current Condition Onset Date since 17 yo Current Complaints chronic LBP, radiating L LE pain History of Current Condition Pt is a 23yo female that presents to clinic with chronic LBP and radiating R leg pain since she was 17yo. She states she started having achy and dull pain at center of lower back L>R who had difficulty to get out of bed for 2 months, and she went to see chiropractor who stated pt has L side curvature and protruded segments on lumbar region. She reports she did get better but her pain never goes away. Her pain has gotten worse since 3 months ago after she stopped working out and doing yoga. Her pain occasionally radiate to L side of the thigh and medial ankle . She stated her pain feels relieved with back stretch/ back decompression but worse with prolonged sitting and standing/ sleeing on L side. She went to ER last month due to unknown difficulty in breathing. CT scan showed negative findings, but her chiropractor visit from couple days ago stated she has protrusion at lumbar segments. Pt had PT eval last year but unable to get more visits due to limited insurance coverage. 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 Prior Treatments and Tests CT Scan = negative findings x-ray= negative findings chiropractor who stated pt has L side curvature and protruded segments on lumbar region Treatment Goals Patient/Caregiver Goals 1. To be pain free during daily activitive 2. 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 PT-OP-F Manual Assessment Start: 02/01/19 08:01 Freq: Status: Active Protocol: Document 02/01/19 10:35 HH (Rec: 02/01/19 12:26 HH [email or web address]) Manual Assessments Soft Tissue Assessment Soft Tissue Mobility Assessment Significant tenderness to pressure at L parapsinals, QL and L1-L4 segments Joint Mobility Assessment Joint Mobility Assessment decreased joint mobility during lateral flexion at lumbar segements. PT-OP-J Posture/Palpation/Skin Start: 02/01/19 08:01 Freq: Status: Active Protocol: Document 02/01/19 10:35 HH (Rec: 02/01/19 12:26 HH [email or web address]) Posture Evaluation Position Standing Head/C-Spine Posture Forward Head Shoulder Posture (L) Rounded,(R) Rounded,(R) Elevated Hip Posture (L) Internally Rotated,(R) Externally Rotated PT-OP-K Range of Motion Start: 02/01/19 08:01 Freq: Status: Active Protocol: Document 02/01/19 10:35 HH (Rec: 02/01/19 12:26 HH [email or web address]) Lumbar Spine Range of Motion Lumbar Spine Percentage Testing Position Standing Flexion 80 Extension 80 Rotation Left 90 Rotation Right 90 Lateral Flexion Left 50 Lateral Flexion Right 50 ROM Limitations Bony Restriction Comments decreased segmental mobility during lateral flexion at lumbar segements. Active Degrees Flexion 70 Extension 60 PT-OP-L Special Tests Start: 02/01/19 08:01 Freq: Status: Active Protocol: Document 02/01/19 10:35 HH (Rec: 02/01/19 12:26 HH [email or web address]) Special Tests Lumbar Spine Special Tests Brennen Test Results -ve standing hip extension Test Results +VE on L Comments pain on L side with lumbar L rotation standing hip flexion Test Results +VE on L Comments pain on L side with lumbar L rotation Prone Instability Test Test Results +VE B Comments pain on L side. Straight Leg Raise Test Results +ve B Comments pain on L side. PT-OP-M Strength Start: 02/01/19 08:01 Freq: Status: Active Protocol: Document 02/01/19 10:35 HH (Rec: 02/01/19 12:26 HH [email or web address]) Hip Strength Hip Manual Muscle Testing Left Flexion (L2) 5 Normal Extension (S1) 4+ Good+ Abduction 4+ Good+ Adduction 5 Normal Right Flexion (L2) 5 Normal Extension (S1) 5 Normal Abduction 5 Normal Adduction 5 Normal PT-OP-Q Treatments Start: 02/01/19 08:01 Freq: Status: Active Protocol: Document 02/03/19 16:45 HH (Rec: 02/03/19 18:30 HH [email or web address]) Therapeutic Exercises Supine Exercises SLR Side bilateral Reps/Minutes 10 x 2 Comments cues on abdominal engagement Prone Exercises prone hip extension Side bilateral Reps/Minutes 10 x 2 Comments cues on isolated hip extension prone bird dog Prone Exercise Name prone hip extension Side bilateral Equipment Used ball on top of lumbar spine Reps/Minutes 10 x3 Comments cues on preventing trunk rotation Standing Exercises standing hip extension Side bilateral Reps/Minutes 3 mins Comments cues on preventing trunk rotation standing hip flexion Side bilateral Reps/Minutes 5 mins Comments cues on preventing trunk rotation Manual Therapy Treatment Soft Tissue Mobilization L QL Mobilization Type Myofascial Release,Sustained Pressure,Trigger Point Release Intensity/Depth Moderate Body Position Sidelying L piriformis Mobilization Type Myofascial Release,Sustained Pressure,Trigger Point Release Intensity/Depth Moderate Body Position Sidelying L paraspinals Body Location lumbar region Mobilization Type Myofascial Release,Sustained Pressure,Trigger Point Release Intensity/Depth Moderate Body Position Sidelying PT-OP-T Assessment and Plan Start: 02/01/19 08:01 Freq: Status: Active Protocol: Document 02/03/19 16:45 HH (Rec: 02/03/19 18:30 HH [email or web address]) Physical Therapy Assessment Goals return to PLOF Impairment pt is unable to participate in yoga and workout routine Short Term Goal (STG) Pt will be able to dedrick yoga and workout 2 times a week with LBP no more than 4/10. STG Duration 5 weeks Jail Goal (LTG) Pt will be fully able to dedrick yoga and workout 4 times a week with LBP no more than 2/ 10. LTG Duration 10 weeks HEP Impairment Pt does not have a HEP Extract Operator Goal (LTG) Pt will comply to HEP safely and independently to improver her trunk stability and muscular control LTG Duration 8 weeks activity tolerance Impairment pt unable to sit/ stand >20 minutes without pain Short Term Goal (STG) Pt will be able to sit/ stand >20 mins without increase in symptoms STG Duration 5 weeks Jail Goal (LTG) Pt will be able to sit/ stand >40 mins without increase in symptoms LTG Duration 10 weeks Oswestry LBP Impairment pt scores 52/100 (40-59% impairment) on Oswestry LBP questionnaire Short Term Goal (STG) pt will score <40/100 on Oswestry LBP questionnaire to improve her quality of life STG Duration 5 weeks Jail Goal (LTG) pt scores <20/100 on Oswestry LBP questionnaire to improve her quality of life LTG Duration 10 weeks Assessment Summary Assessment Pt reports of reduced pain during PA mob at lumbar spine/ SLR today. Showed reduced trunk rotation during standing flexion and extension. There' s noticeable excessive lumbar rotation and hip drop during gait assessment. Physical Therapy Plan Next Visit Focus/Plan Next Note Type Treatment Note Next Visit Plan review HEP bird dog, SLR, standing FL/ ext manual and verbal cue on hip AROM without lumbar muscles compensation assess gait static and dynamic trunk stability
--- NOTE | 2019-02-10 19:00 | PT.OTN ---
Current Diagnoses Dorsalgia, unspecified (02/10/19) Physical Therapy Treatment Note PT-OP-A Visit Information Start: 02/01/19 08:01 Freq: Status: Active Protocol: Document 02/10/19 13:50 HH (Rec: 02/10/19 19:00 HH [email or web address]) Out-Patient Physical Therapy Visit Information Visit Information Visit Type Treatment Note Visit Start Time 13:50 Visit Stop Time 14:33 Total Visit Minutes 43 Visit Number 3/16 Number of DIE TROUBLE SHOOTER Visits 0 PT-OP-B Current Condition Start: 02/01/19 08:01 Freq: Status: Active Protocol: Document 02/01/19 10:35 HH (Rec: 02/01/19 12:26 HH [email or web address]) Current Condition History of Current Condition Onset Date since 17 yo Current Complaints chronic LBP, radiating L LE pain History of Current Condition Pt is a 23yo female that presents to clinic with chronic LBP and radiating R leg pain since she was 17yo. She states she started having achy and dull pain at center of lower back L>R who had difficulty to get out of bed for 2 months, and she went to see chiropractor who stated pt has L side curvature and protruded segments on lumbar region. She reports she did get better but her pain never goes away. Her pain has gotten worse since 3 months ago after she stopped working out and doing yoga. Her pain occasionally radiate to L side of the thigh and medial ankle . She stated her pain feels relieved with back stretch/ back decompression but worse with prolonged sitting and standing/ sleeing on L side. She went to ER last month due to unknown difficulty in breathing. CT scan showed negative findings, but her chiropractor visit from couple days ago stated she has protrusion at lumbar segments. Pt had PT eval last year but unable to get more visits due to limited insurance coverage. 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 Prior Treatments and Tests CT Scan = negative findings x-ray= negative findings chiropractor who stated pt has L side curvature and protruded segments on lumbar region Treatment Goals Patient/Caregiver Goals 1. 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 It is getting easier to isolate my hip muscles without compensatiing through my back. Patient Reported Progress Improving PT-OP-F Manual Assessment Start: 02/01/19 08:01 Freq: Status: Active Protocol: Document 02/01/19 10:35 HH (Rec: 02/01/19 12:26 HH [email or web address]) Manual Assessments Soft Tissue Assessment Soft Tissue Mobility Assessment Significant tenderness to pressure at L parapsinals, QL and L1-L4 segments Joint Mobility Assessment Joint Mobility Assessment decreased joint mobility during lateral flexion at lumbar segements. PT-OP-J Posture/Palpation/Skin Start: 02/01/19 08:01 Freq: Status: Active Protocol: Document 02/01/19 10:35 HH (Rec: 02/01/19 12:26 HH [email or web address]) Posture Evaluation Position Standing Head/C-Spine Posture Forward Head Shoulder Posture (L) Rounded,(R) Rounded,(R) Elevated Hip Posture (L) Internally Rotated,(R) Externally Rotated PT-OP-K Range of Motion Start: 02/01/19 08:01 Freq: Status: Active Protocol: Document 02/01/19 10:35 HH (Rec: 02/01/19 12:26 HH [email or web address]) Lumbar Spine Range of Motion Lumbar Spine Percentage Testing Position Standing Flexion 80 Extension 80 Rotation Left 90 Rotation Right 90 Lateral Flexion Left 50 Lateral Flexion Right 50 ROM Limitations Bony Restriction Comments decreased segmental mobility during lateral flexion at lumbar segements. Active Degrees Flexion 70 Extension 60 PT-OP-L Special Tests Start: 02/01/19 08:01 Freq: Status: Active Protocol: Document 02/01/19 10:35 HH (Rec: 02/01/19 12:26 HH [email or web address]) Special Tests Lumbar Spine Special Tests Brennen Test Results -ve standing hip extension Test Results +VE on L Comments pain on L side with lumbar L rotation standing hip flexion Test Results +VE on L Comments pain on L side with lumbar L rotation Prone Instability Test Test Results +VE B Comments pain on L side. Straight Leg Raise Test Results +ve B Comments pain on L side. PT-OP-M Strength Start: 02/01/19 08:01 Freq: Status: Active Protocol: Document 02/01/19 10:35 HH (Rec: 02/01/19 12:26 HH [email or web address]) Hip Strength Hip Manual Muscle Testing Left Flexion (L2) 5 Normal Extension (S1) 4+ Good+ Abduction 4+ Good+ Adduction 5 Normal Right Flexion (L2) 5 Normal Extension (S1) 5 Normal Abduction 5 Normal Adduction 5 Normal PT-OP-Q Treatments Start: 02/01/19 08:01 Freq: Status: Active Protocol: Document 02/10/19 13:50 HH (Rec: 02/10/19 19:00 [email or web address]) Therapeutic Exercises Supine Exercises supine leg lift Side bilateral Reps/Minutes 6 x 4 Comments from 30 degrees to 90 degrees, ppT supine hip abd Side bilateral Equipment Used yellow band Reps/Minutes 10 x 3 SLR Side bilateral Reps/Minutes 10 x 2 Comments cues on abdominal engagement Prone Exercises plank Side bilateral Reps/Minutes 10secs x4 Comments elbow tuck in with gluteal engagement prone hip extension Side bilateral Reps/Minutes 10 x 2 Comments cues on isolated hip extension prone bird dog Prone Exercise Name prone hip extension Side bilateral Equipment Used ball on top of lumbar spine Reps/Minutes 10 x3 Comments cues on preventing trunk rotation Standing Exercises SLS with weighted ball Standing Exercise Name ball around the world Side bilateral Equipment Used 3 lbs ball Reps/Minutes 5 circles x 5 RDL Side bilateral Equipment Used 2lb ball Reps/Minutes 6 x 4 Comments cues on preventing trunk rotation PT-OP-T Assessment and Plan Start: 02/01/19 08:01 Freq: Status: Active Protocol: Document 02/10/19 13:50 HH (Rec: 02/10/19 19:00 [email or web address]) Physical Therapy Assessment Goals return to PLOF Impairment pt is unable to participate in yoga and workout routine Short Term Goal (STG) Pt will be able to dedrick yoga and workout 2 times a week with LBP no more than 4/10. STG Duration 5 weeks Residential Goal (LTG) Pt will be fully able to dedrick yoga and workout 4 times a week with LBP no more than 2/ 10. LTG Duration 10 weeks HEP Impairment Pt does not have a HEP Residential Goal (LTG) Pt will comply to HEP safely and independently to improver her trunk stability and muscular control LTG Duration 8 weeks activity tolerance Impairment pt unable to sit/ stand >20 minutes without pain Short Term Goal (STG) Pt will be able to sit/ stand >20 mins without increase in symptoms STG Duration 5 weeks Residential Goal (LTG) Pt will be able to sit/ stand >40 mins without increase in symptoms LTG Duration 10 weeks Oswestry LBP Impairment pt scores 52/100 (40-59% impairment) on Oswestry LBP questionnaire Short Term Goal (STG) pt will score <40/100 on Oswestry LBP questionnaire to improve her quality of life STG Duration 5 weeks Clinical Staff Anesthesiologist Goal (LTG) pt scores <20/100 on Oswestry LBP questionnaire to improve her quality of life LTG Duration 10 weeks Assessment Summary Assessment Pt reports less back pain in general and improved isolated movement and hip control. Reduced pain noted during PA mob at L/S today. focused on trunk stability ex and hip strengthening ex. Added RDL, supine leg lifta and plank to HEP. Physical Therapy Plan Next Visit Focus/Plan Next Note Type Treatment Note Next Visit Plan review HEP manual and verbal cue on hip AROM without lumbar muscles compensation assess gait static and dynamic trunk stability (plank, leg lift, )
--- NOTE | 2019-02-14 17:21 | PT.OTN ---
Current Diagnoses Dorsalgia, unspecified (02/14/19) Physical Therapy Treatment Note PT-OP-A Visit Information Start: 02/01/19 08:01 Freq: Status: Active Protocol: Document 02/14/19 17:04 AW (Rec: 02/14/19 17:21 AW [email or web address]) Out-Patient Physical Therapy Visit Information Visit Information Visit Type Treatment Note Visit Start Time 09:00 Visit Stop Time 09:42 Total Visit Minutes 42 Visit Number 4/16 Number of CIRCLE CUTTING SAW OPERATOR Visits 0 PT-OP-B Current Condition Start: 02/01/19 08:01 Freq: Status: Active Protocol: Document 02/01/19 10:35 HH (Rec: 02/01/19 12:26 HH [email or web address]) Current Condition History of Current Condition Onset Date since 17 yo Current Complaints chronic LBP, radiating L LE pain History of Current Condition Pt is a 23yo female that presents to clinic with chronic LBP and radiating R leg pain since she was 17yo. She states she started having achy and dull pain at center of lower back L>R who had difficulty to get out of bed for 2 months, and she went to see chiropractor who stated pt has L side curvature and protruded segments on lumbar region. She reports she did get better but her pain never goes away. Her pain has gotten worse since 3 months ago after she stopped working out and doing yoga. Her pain occasionally radiate to L side of the thigh and medial ankle . She stated her pain feels relieved with back stretch/ back decompression but worse with prolonged sitting and standing/ sleeing on L side. She went to ER last month due to unknown difficulty in breathing. CT scan showed negative findings, but her chiropractor visit from couple days ago stated she has protrusion at lumbar segments. Pt had PT eval last year but unable to get more visits due to limited insurance coverage. 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 Prior Treatments and Tests CT Scan = negative findings x-ray= negative findings chiropractor who stated pt has L side curvature and protruded segments on lumbar region Treatment Goals Patient/Caregiver Goals 1. 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 Patient Reported Progress Improving PT-OP-F Manual Assessment Start: 02/01/19 08:01 Freq: Status: Active Protocol: Document 02/01/19 10:35 HH (Rec: 02/01/19 12:26 HH [email or web address]) Manual Assessments Soft Tissue Assessment Soft Tissue Mobility Assessment Significant tenderness to pressure at L parapsinals, QL and L1-L4 segments Joint Mobility Assessment Joint Mobility Assessment decreased joint mobility during lateral flexion at lumbar segements. PT-OP-J Posture/Palpation/Skin Start: 02/01/19 08:01 Freq: Status: Active Protocol: Document 02/01/19 10:35 HH (Rec: 02/01/19 12:26 HH [email or web address]) Posture Evaluation Position Standing Head/C-Spine Posture Forward Head Shoulder Posture (L) Rounded,(R) Rounded,(R) Elevated Hip Posture (L) Internally Rotated,(R) Externally Rotated PT-OP-K Range of Motion Start: 02/01/19 08:01 Freq: Status: Active Protocol: Document 02/01/19 10:35 HH (Rec: 02/01/19 12:26 HH [email or web address]) Lumbar Spine Range of Motion Lumbar Spine Percentage Testing Position Standing Flexion 80 Extension 80 Rotation Left 90 Rotation Right 90 Lateral Flexion Left 50 Lateral Flexion Right 50 ROM Limitations Bony Restriction Comments decreased segmental mobility during lateral flexion at lumbar segements. Active Degrees Flexion 70 Extension 60 PT-OP-L Special Tests Start: 02/01/19 08:01 Freq: Status: Active Protocol: Document 02/01/19 10:35 HH (Rec: 02/01/19 12:26 HH [email or web address]) Special Tests Lumbar Spine Special Tests Brennen Test Results -ve standing hip extension Test Results +VE on L Comments pain on L side with lumbar L rotation standing hip flexion Test Results +VE on L Comments pain on L side with lumbar L rotation Prone Instability Test Test Results +VE B Comments pain on L side. Straight Leg Raise Test Results +ve B Comments pain on L side. PT-OP-M Strength Start: 02/01/19 08:01 Freq: Status: Active Protocol: Document 02/01/19 10:35 HH (Rec: 02/01/19 12:26 HH [email or web address]) Hip Strength Hip Manual Muscle Testing Left Flexion (L2) 5 Normal Extension (S1) 4+ Good+ Abduction 4+ Good+ Adduction 5 Normal Right Flexion (L2) 5 Normal Extension (S1) 5 Normal Abduction 5 Normal Adduction 5 Normal PT-OP-Q Treatments Start: 02/01/19 08:01 Freq: Status: Active Protocol: Document 02/14/19 17:04 AW (Rec: 02/14/19 17:21 AW [email or web address]) Cardio Equipment Elliptical Duration (Minutes) 5 Resistance 4 Therapeutic Exercises Supine Exercises TA activation - heel slide (heel parallel with table) Supine Exercise Name TA activation - heel slide ( heel parallel with table) Side bilateral Reps/Minutes 2x10 reps Comments pt challenged with this movement. baseline strength in Sahrmann progression TA activation - marching Supine Exercise Name TA activation - marching Side bilateral Reps/Minutes 1x10 reps bilat Comments using gait belt for tactile feedback to engage PPT supine leg lift Side bilateral Reps/Minutes 6 x 4 Comments from 30 degrees to 90 degrees, ppT supine hip abd Side bilateral Equipment Used yellow band Reps/Minutes 10 x 3 Prone Exercises child pose Prone Exercise Name child pose Reps/Minutes 30 sec hold x 3 Comments cues to keep hips low cat cow Prone Exercise Name cat cow Side bilateral Reps/Minutes 2x10 reps Comments cues to follow breath Standing Exercises resisted side stepping Standing Exercise Name resisted side stepping Side bilateral Resistance yellow band at ankles Reps/Minutes 10 feet each direction x 3 hip hinge Standing Exercise Name hip hinge Side bilateral Equipment Used meter stick for tactile feedback Reps/Minutes 3x10 reps Comments cues to dissociate hip from lumbar movement PT-OP-T Assessment and Plan Start: 02/01/19 08:01 Freq: Status: Active Protocol: Document 02/14/19 17:04 AW (Rec: 02/14/19 17:21 AW [email or web address]) Physical Therapy Assessment Goals return to PLOF Impairment pt is unable to participate in yoga and workout routine Short Term Goal (STG) Pt will be able to dedrick yoga and workout 2 times a week with LBP no more than 4/10. STG Duration 03/08/19 Retirement Goal (LTG) Pt will be fully able to dedrick yoga and workout 4 times a week with LBP no more than 2/ 10. LTG Duration 04/12/19 HEP Impairment Pt does not have a HEP Sewer Pipe Press Operator Goal (LTG) Pt will comply to HEP safely and independently to improver her trunk stability and muscular control LTG Duration 8 weeks activity tolerance Impairment pt unable to sit/ stand >20 minutes without pain Short Term Goal (STG) Pt will be able to sit/ stand >20 mins without increase in symptoms STG Duration 03/08/19 Retirement Goal (LTG) Pt will be able to sit/ stand >40 mins without increase in symptoms LTG Duration 04/12/19 Oswestry LBP Impairment pt scores 52/100 (40-59% impairment) on Oswestry LBP questionnaire Short Term Goal (STG) pt will score <40/100 on Oswestry LBP questionnaire to improve her quality of life STG Duration 03/08/19 Retirement Goal (LTG) pt scores <20/100 on Oswestry LBP questionnaire to improve her quality of life LTG Duration 04/12/19 Assessment Summary Assessment Focused today on lumbar stability/PPT in supine with pt demonstrating good control through Saharmann stages to heel slides parallel to table. Pt moving with less pain and increased confidence. Physical Therapy Plan Next Visit Focus/Plan Next Note Type Treatment Note Next Visit Plan review HEP manual and verbal cue on hip AROM without lumbar muscles compensation assess gait static and dynamic trunk stability (plank, leg lift, )
--- NOTE | 2019-02-18 16:16 | PT.OTN ---
Current Diagnoses Dorsalgia, unspecified (02/18/19) Physical Therapy Treatment Note PT-OP-A Visit Information Start: 02/01/19 08:01 Freq: Status: Active Protocol: Document 02/18/19 13:00 HH (Rec: 02/18/19 16:16 HH [email or web address]) Out-Patient Physical Therapy Visit Information Visit Information Visit Type Treatment Note Visit Start Time 13:00 Visit Stop Time 13:47 Total Visit Minutes 47 Visit Number 5/16 Number of FRAUD INVESTIGATOR Visits 0 PT-OP-B Current Condition Start: 02/01/19 08:01 Freq: Status: Active Protocol: Document 02/01/19 10:35 HH (Rec: 02/01/19 12:26 HH [email or web address]) Current Condition History of Current Condition Onset Date since 17 yo Current Complaints chronic LBP, radiating L LE pain History of Current Condition Pt is a 23yo female that presents to clinic with chronic LBP and radiating R leg pain since she was 17yo. She states she started having achy and dull pain at center of lower back L>R who had difficulty to get out of bed for 2 months, and she went to see chiropractor who stated pt has L side curvature and protruded segments on lumbar region. She reports she did get better but her pain never goes away. Her pain has gotten worse since 3 months ago after she stopped working out and doing yoga. Her pain occasionally radiate to L side of the thigh and medial ankle . She stated her pain feels relieved with back stretch/ back decompression but worse with prolonged sitting and standing/ sleeing on L side. She went to ER last month due to unknown difficulty in breathing. CT scan showed negative findings, but her chiropractor visit from couple days ago stated she has protrusion at lumbar segments. Pt had PT eval last year but unable to get more visits due to limited insurance coverage. 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 Prior Treatments and Tests CT Scan = negative findings x-ray= negative findings chiropractor who stated pt has L side curvature and protruded segments on lumbar region Treatment Goals Patient/Caregiver Goals 1. To be pain free during daily activitive 2. 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 Even though i didnt do much of my HEP. But i am happy of my progress. Patient Reported Progress Improving PT-OP-F Manual Assessment Start: 02/01/19 08:01 Freq: Status: Active Protocol: Document 02/01/19 10:35 HH (Rec: 02/01/19 12:26 [email or web address]) Manual Assessments Soft Tissue Assessment Soft Tissue Mobility Assessment Significant tenderness to pressure at L parapsinals, QL and L1-L4 segments Joint Mobility Assessment Joint Mobility Assessment decreased joint mobility during lateral flexion at lumbar segements. PT-OP-J Posture/Palpation/Skin Start: 02/01/19 08:01 Freq: Status: Active Protocol: Document 02/01/19 10:35 HH (Rec: 02/01/19 12:26 [email or web address]) Posture Evaluation Position Standing Head/C-Spine Posture Forward Head Shoulder Posture (L) Rounded,(R) Rounded,(R) Elevated Hip Posture (L) Internally Rotated,(R) Externally Rotated PT-OP-K Range of Motion Start: 02/01/19 08:01 Freq: Status: Active Protocol: Document 02/01/19 10:35 HH (Rec: 02/01/19 12:26 [email or web address]) Lumbar Spine Range of Motion Lumbar Spine Percentage Testing Position Standing Flexion 80 Extension 80 Rotation Left 90 Rotation Right 90 Lateral Flexion Left 50 Lateral Flexion Right 50 ROM Limitations Bony Restriction Comments decreased segmental mobility during lateral flexion at lumbar segements. Active Degrees Flexion 70 Extension 60 PT-OP-L Special Tests Start: 02/01/19 08:01 Freq: Status: Active Protocol: Document 02/01/19 10:35 HH (Rec: 02/01/19 12:26 [email or web address]) Special Tests Lumbar Spine Special Tests Brennen Test Results -ve standing hip extension Test Results +VE on L Comments pain on L side with lumbar L rotation standing hip flexion Test Results +VE on L Comments pain on L side with lumbar L rotation Prone Instability Test Test Results +VE B Comments pain on L side. Straight Leg Raise Test Results +ve B Comments pain on L side. PT-OP-M Strength Start: 02/01/19 08:01 Freq: Status: Active Protocol: Document 02/01/19 10:35 HH (Rec: 02/01/19 12:26 HH [email or web address]) Hip Strength Hip Manual Muscle Testing Left Flexion (L2) 5 Normal Extension (S1) 4+ Good+ Abduction 4+ Good+ Adduction 5 Normal Right Flexion (L2) 5 Normal Extension (S1) 5 Normal Abduction 5 Normal Adduction 5 Normal PT-OP-Q Treatments Start: 02/01/19 08:01 Freq: Status: Active Protocol: Document 02/18/19 13:00 HH (Rec: 02/18/19 16:16 HH [email or web address]) Cardio Equipment Elliptical Duration (Minutes) 5 Resistance 4 Therapeutic Exercises Supine Exercises supine hip rotation Supine Exercise Name hips at 90 degrees, flat back Side bilateral Reps/Minutes 10 x2 supine hip flexion Equipment Used yellow band on foot Reps/Minutes 10 x2 TA activation - heel slide (heel parallel with table) Supine Exercise Name TA activation - heel slide ( heel parallel with table) Side bilateral Reps/Minutes 2x10 reps Comments pt challenged with this movement. baseline strength in Sahrmann progression TA activation - marching Supine Exercise Name TA activation - marching Side bilateral Reps/Minutes 1x10 reps bilat Comments using gait belt for tactile feedback to engage PPT supine leg lift Side bilateral Reps/Minutes 6 x 4 Comments from 30 degrees to 90 degrees, ppT Prone Exercises prone bird dog Prone Exercise Name prone hip extension + ipsilateral arm lift Side bilateral Equipment Used ball on top of lumbar spine Reps/Minutes 10 x3 Comments cues on preventing trunk rotation Standing Exercises bend over row Side bilateral Equipment Used 2 x 10lbs DB Comments cues on neutral spine Raleigh curl Side bilateral Equipment Used 2 x 10lbs DB Comments cues on neutral spine, down to mid gonzalez deadlift Side bilateral Equipment Used 2 x 8lbs DB Comments cues on neutral spine, down to mid gonzalez hip hinge Standing Exercise Name hip hinge Side bilateral Equipment Used meter stick for tactile feedback Reps/Minutes 3x10 reps Comments cues to dissociate hip from lumbar movement RDL Side bilateral Reps/Minutes 2 x5 Comments cues on preventing trunk rotation PT-OP-T Assessment and Plan Start: 02/01/19 08:01 Freq: Status: Active Protocol: Document 02/18/19 13:00 (Rec: 02/18/19 16:16 [email or web address]) Physical Therapy Assessment Goals return to PLOF Impairment pt is unable to participate in yoga and workout routine Short Term Goal (STG) Pt will be able to dedrick yoga and workout 2 times a week with LBP no more than 4/10. STG Duration 5 weeks [facility] Food Service Worker Goal (LTG) Pt will be fully able to dedrick yoga and workout 4 times a week with LBP no more than 2/ 10. LTG Duration 10 weeks HEP Impairment Pt does not have a HEP [facility] Goal (LTG) Pt will comply to HEP safely and independently to improver her trunk stability and muscular control LTG Duration 8 weeks activity tolerance Impairment pt unable to sit/ stand >20 minutes without pain Short Term Goal (STG) Pt will be able to sit/ stand >20 mins without increase in symptoms STG Duration 5 weeks [facility] Goal (LTG) Pt will be able to sit/ stand >40 mins without increase in symptoms LTG Duration 10 weeks Oswestry LBP Impairment pt scores 52/100 (40-59% impairment) on Oswestry LBP questionnaire Short Term Goal (STG) pt will score <40/100 on Oswestry LBP questionnaire to improve her quality of life STG Duration 5 weeks [facility] Service Worker Goal (LTG) pt scores <20/100 on Oswestry LBP questionnaire to improve her quality of life LTG Duration 10 weeks Assessment Summary Assessment Pt cont to progress with improved trunk stability. Pt progressed to bird dog with ipsilateral arm lift. Added weighted deadlift and raleigh curl. She still needed cues for RDL to prevent trunk rotation. There's noticeable decreased trunk rotation during standing hip flexion and ambulation. Physical Therapy Plan Next Visit Focus/Plan Next Note Type Treatment Note Next Visit Plan review HEP manual and verbal cue on hip AROM without lumbar muscles compensation dynamic trunk stability (plank , leg lift, supine hip rotation)
--- NOTE | 2019-02-23 12:38 | PT.OTN ---
Current Diagnoses Dorsalgia, unspecified (02/23/19) Physical Therapy Treatment Note PT-OP-A Visit Information Start: 02/01/19 08:01 Freq: Status: Active Protocol: Document 02/23/19 12:25 AW (Rec: 02/23/19 12:38 AW [email or web address]) Out-Patient Physical Therapy Visit Information Visit Information Visit Type Treatment Note Visit Start Time 10:30 Visit Stop Time 11:13 Total Visit Minutes 43 Visit Number 11/07 Number of WHIZZER OPERATOR Visits 0 PT-OP-B Current Condition Start: 02/01/19 08:01 Freq: Status: Active Protocol: Document 02/01/19 10:35 HH (Rec: 02/01/19 12:26 HH [email or web address]) Current Condition History of Current Condition Onset Date since 17 yo Current Complaints chronic LBP, radiating L LE pain History of Current Condition Pt is a 23yo female that presents to clinic with chronic LBP and radiating R leg pain since she was 17yo. She states she started having achy and dull pain at center of lower back L>R who had difficulty to get out of bed for 2 months, and she went to see chiropractor who stated pt has L side curvature and protruded segments on lumbar region. She reports she did get better but her pain never goes away. Her pain has gotten worse since 3 months ago after she stopped working out and doing yoga. Her pain occasionally radiate to L side of the thigh and medial ankle . She stated her pain feels relieved with back stretch/ back decompression but worse with prolonged sitting and standing/ sleeing on L side. She went to ER last month due to unknown difficulty in breathing. CT scan showed negative findings, but her chiropractor visit from couple days ago stated she has protrusion at lumbar segments. Pt had PT eval last year but unable to get more visits due to limited insurance coverage. 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 Prior Treatments and Tests CT Scan = negative findings x-ray= negative findings chiropractor who stated pt has L side curvature and protruded segments on lumbar region Treatment Goals Patient/Caregiver Goals 1. 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 I've done my HEP twice in the last week, including last night. Patient Reported Progress Improving PT-OP-F Manual Assessment Start: 02/01/19 08:01 Freq: Status: Active Protocol: Document 02/01/19 10:35 HH (Rec: 02/01/19 12:26 HH [email or web address]) Manual Assessments Soft Tissue Assessment Soft Tissue Mobility Assessment Significant tenderness to pressure at L parapsinals, QL and L1-L4 segments Joint Mobility Assessment Joint Mobility Assessment decreased joint mobility during lateral flexion at lumbar segements. PT-OP-J Posture/Palpation/Skin Start: 02/01/19 08:01 Freq: Status: Active Protocol: Document 02/01/19 10:35 HH (Rec: 02/01/19 12:26 HH [email or web address]) Posture Evaluation Position Standing Head/C-Spine Posture Forward Head Shoulder Posture (L) Rounded,(R) Rounded,(R) Elevated Hip Posture (L) Internally Rotated,(R) Externally Rotated PT-OP-K Range of Motion Start: 02/01/19 08:01 Freq: Status: Active Protocol: Document 02/01/19 10:35 HH (Rec: 02/01/19 12:26 HH [email or web address]) Lumbar Spine Range of Motion Lumbar Spine Percentage Testing Position Standing Flexion 80 Extension 80 Rotation Left 90 Rotation Right 90 Lateral Flexion Left 50 Lateral Flexion Right 50 ROM Limitations Bony Restriction Comments decreased segmental mobility during lateral flexion at lumbar segements. Active Degrees Flexion 70 Extension 60 PT-OP-L Special Tests Start: 02/01/19 08:01 Freq: Status: Active Protocol: Document 02/01/19 10:35 HH (Rec: 02/01/19 12:26 HH [email or web address]) Special Tests Lumbar Spine Special Tests Brennen Test Results -ve standing hip extension Test Results +VE on L Comments pain on L side with lumbar L rotation standing hip flexion Test Results +VE on L Comments pain on L side with lumbar L rotation Prone Instability Test Test Results +VE B Comments pain on L side. Straight Leg Raise Test Results +ve B Comments pain on L side. PT-OP-M Strength Start: 02/01/19 08:01 Freq: Status: Active Protocol: Document 02/01/19 10:35 HH (Rec: 02/01/19 12:26 HH [email or web address]) Hip Strength Hip Manual Muscle Testing Left Flexion (L2) 5 Normal Extension (S1) 4+ Good+ Abduction 4+ Good+ Adduction 5 Normal Right Flexion (L2) 5 Normal Extension (S1) 5 Normal Abduction 5 Normal Adduction 5 Normal PT-OP-Q Treatments Start: 02/01/19 08:01 Freq: Status: Active Protocol: Document 02/23/19 12:25 AW (Rec: 02/23/19 12:38 AW [email or web address]) Cardio Equipment Elliptical Duration (Minutes) 5 Resistance 5 Therapeutic Exercises Supine Exercises supine hip flexion Supine Exercise Name supine hip flexion Equipment Used yellow band on foot Reps/Minutes 10 x2 TA activation - marching Supine Exercise Name TA activation - marching Side bilateral Reps/Minutes 5 reps Comments pt reported twinge in lower back with this movement. discontinued. SKTC. Prone Exercises quadruped lateral flexion Prone Exercise Name quadruped lateral flexion Side bilateral Reps/Minutes 2x10 reps Comments try to bring shoulder and hip together while looking over same shoulder child pose Prone Exercise Name child pose Reps/Minutes 30 sec hold x 3 Comments cues to keep hips low cat cow Prone Exercise Name cat cow Side bilateral Reps/Minutes 2x10 reps Comments cues to follow breath Sitting Exercises marching on ball Sitting Exercise Name marching/hip flexion on ball Side bilateral Equipment Used 65 cm ball Reps/Minutes 2x10 reps Comments cues for TA engagement Standing Exercises Raleigh curl Side bilateral Equipment Used 2 x 10lbs DB Comments cues for segmental movement. fingertips to toes deadlift Side bilateral Equipment Used 2 x 8lbs DB Comments cues on neutral spine, down to mid gonzalez hip hinge Standing Exercise Name hip hinge Side bilateral Equipment Used meter stick for tactile feedback Reps/Minutes 3x10 reps Comments cues to dissociate hip from lumbar movement PT-OP-T Assessment and Plan Start: 02/01/19 08:01 Freq: Status: Active Protocol: Document 02/23/19 12:25 AW (Rec: 02/23/19 12:38 AW [email or web address]) Physical Therapy Assessment Goals return to PLOF Impairment pt is unable to participate in yoga and workout routine Short Term Goal (STG) Pt will be able to dedrick yoga and workout 2 times a week with LBP no more than 4/10. STG Duration 5 weeks Shale Processing Technician Goal (LTG) Pt will be fully able to dedrick yoga and workout 4 times a week with LBP no more than 2/ 10. LTG Duration 10 weeks HEP Impairment Pt does not have a HEP [facility] Goal (LTG) Pt will comply to HEP safely and independently to improver her trunk stability and muscular control LTG Duration 8 weeks activity tolerance Impairment pt unable to sit/ stand >20 minutes without pain Short Term Goal (STG) Pt will be able to sit/ stand >20 mins without increase in symptoms STG Duration 5 weeks [facility] Goal (LTG) Pt will be able to sit/ stand >40 mins without increase in symptoms LTG Duration 10 weeks Oswestry LBP Impairment pt scores 52/100 (40-59% impairment) on Oswestry LBP questionnaire Short Term Goal (STG) pt will score <40/100 on Oswestry LBP questionnaire to improve her quality of life STG Duration 5 weeks Shale Processing Technician Goal (LTG) pt scores <20/100 on Oswestry LBP questionnaire to improve her quality of life LTG Duration 10 weeks Assessment Summary Assessment Pt with increased irritability today on attempt with supine marching. Stretching and gentle movement improved symptoms. Progressed to unsupported sitting with hip flexion on ball. Pt demonstrated good stability with increased challenge Physical Therapy Plan Next Visit Focus/Plan Next Note Type Treatment Note Next Visit Plan review HEP manual and verbal cue on hip AROM without lumbar muscles compensation dynamic trunk stability (plank , leg lift, supine hip rotation)
--- NOTE | 2019-02-28 16:54 | PT.OTN ---
Current Diagnoses Dorsalgia, unspecified (02/28/19) Physical Therapy Treatment Note PT-OP-A Visit Information Start: 02/01/19 08:01 Freq: Status: Active Protocol: Document 02/28/19 14:30 MB (Rec: 02/28/19 16:50 MB [email or web address]) Out-Patient Physical Therapy Visit Information Visit Information Visit Type Treatment Note Visit Start Time 14:30 Visit Stop Time 15:10 Total Visit Minutes 40 Visit Number 12/07 Number of RADIATION THERAPIST Visits 0 PT-OP-B Current Condition Start: 02/01/19 08:01 Freq: Status: Active Protocol: Document 02/01/19 10:35 HH (Rec: 02/01/19 12:26 HH [email or web address]) Current Condition History of Current Condition Onset Date since 17 yo Current Complaints chronic LBP, radiating L LE pain History of Current Condition Pt is a 23yo female that presents to clinic with chronic LBP and radiating R leg pain since she was 17yo. She states she started having achy and dull pain at center of lower back L>R who had difficulty to get out of bed for 2 months, and she went to see chiropractor who stated pt has L side curvature and protruded segments on lumbar region. She reports she did get better but her pain never goes away. Her pain has gotten worse since 3 months ago after she stopped working out and doing yoga. Her pain occasionally radiate to L side of the thigh and medial ankle . She stated her pain feels relieved with back stretch/ back decompression but worse with prolonged sitting and standing/ sleeing on L side. She went to ER last month due to unknown difficulty in breathing. CT scan showed negative findings, but her chiropractor visit from couple days ago stated she has protrusion at lumbar segments. Pt had PT eval last year but unable to get more visits due to limited insurance coverage. 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 Prior Treatments and Tests CT Scan = negative findings x-ray= negative findings chiropractor who stated pt has L side curvature and protruded segments on lumbar region Treatment Goals Patient/Caregiver Goals 1. 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 She slept on her left side too long. She is using a body pillow. There was dog interference in the bed. She baked a lot yesterday and her back her. Her counters are low . She is on smoking cessation day 2. Patient Reported Progress Improving PT-OP-F Manual Assessment Start: 02/01/19 08:01 Freq: Status: Active Protocol: Document 02/01/19 10:35 HH (Rec: 02/01/19 12:26 HH [email or web address]) Manual Assessments Soft Tissue Assessment Soft Tissue Mobility Assessment Significant tenderness to pressure at L parapsinals, QL and L1-L4 segments Joint Mobility Assessment Joint Mobility Assessment decreased joint mobility during lateral flexion at lumbar segements. PT-OP-J Posture/Palpation/Skin Start: 02/01/19 08:01 Freq: Status: Active Protocol: Document 02/01/19 10:35 HH (Rec: 02/01/19 12:26 HH [email or web address]) Posture Evaluation Position Standing Head/C-Spine Posture Forward Head Shoulder Posture (L) Rounded,(R) Rounded,(R) Elevated Hip Posture (L) Internally Rotated,(R) Externally Rotated PT-OP-K Range of Motion Start: 02/01/19 08:01 Freq: Status: Active Protocol: Document 02/01/19 10:35 HH (Rec: 02/01/19 12:26 HH [email or web address]) Lumbar Spine Range of Motion Lumbar Spine Percentage Testing Position Standing Flexion 80 Extension 80 Rotation Left 90 Rotation Right 90 Lateral Flexion Left 50 Lateral Flexion Right 50 ROM Limitations Bony Restriction Comments decreased segmental mobility during lateral flexion at lumbar segements. Active Degrees Flexion 70 Extension 60 PT-OP-L Special Tests Start: 02/01/19 08:01 Freq: Status: Active Protocol: Document 02/01/19 10:35 HH (Rec: 02/01/19 12:26 HH [email or web address]) Special Tests Lumbar Spine Special Tests Brennen Test Results -ve standing hip extension Test Results +VE on L Comments pain on L side with lumbar L rotation standing hip flexion Test Results +VE on L Comments pain on L side with lumbar L rotation Prone Instability Test Test Results +VE B Comments pain on L side. Straight Leg Raise Test Results +ve B Comments pain on L side. PT-OP-M Strength Start: 02/01/19 08:01 Freq: Status: Active Protocol: Document 02/01/19 10:35 HH (Rec: 02/01/19 12:26 HH [email or web address]) Hip Strength Hip Manual Muscle Testing Left Flexion (L2) 5 Normal Extension (S1) 4+ Good+ Abduction 4+ Good+ Adduction 5 Normal Right Flexion (L2) 5 Normal Extension (S1) 5 Normal Abduction 5 Normal Adduction 5 Normal PT-OP-Q Treatments Start: 02/01/19 08:01 Freq: Status: Active Protocol: Document 02/28/19 14:30 MB (Rec: 02/28/19 16:50 MB [id number]) Therapeutic Exercises Supine Exercises Brennen stretch Supine Exercise Name B Brennen stretch, ed progression for increasing quad stretch Sidelying Exercises QL stretch Comments B QL stretch with coughing to increase rib mobility/QL mob Sitting Exercises Rolling pin massage Sitting Exercise Name Sitting rolling pin massage, see saw motion Manual Therapy Treatment Soft Tissue Mobilization QL Comments Rib recoil and STM B QL in side lying PT-OP-T Assessment and Plan Start: 02/01/19 08:01 Freq: Status: Active Protocol: Document 02/28/19 14:30 MB (Rec: 02/28/19 16:50 MB [id number]) Physical Therapy Assessment Assessment Summary Assessment Pt responds well to PT this date including QL mobilization . Con't core and hip strengthening. Physical Therapy Plan Frequency and Duration Frequency of Treatment 2x/Week Duration of Treatment 10 weeks Plan of Care Start Date 02/01/19 Plan of Care End Date 04/17/19 Next Visit Focus/Plan Next Note Type Treatment Note Next Visit Plan Con't core and hip strengthening progression, consider manual work quads
--- NOTE | 2019-03-09 07:51 | PT.OTN ---
Current Diagnoses Dorsalgia, unspecified (03/08/19) Physical Therapy Treatment Note PT-OP-A Visit Information Start: 02/01/19 08:01 Freq: Status: Active Protocol: Document 03/08/19 14:36 JG (Rec: 03/08/19 16:24 JG [email or web address]) Out-Patient Physical Therapy Visit Information Visit Information Visit Type Treatment Note Visit Start Time 14:36 Visit Stop Time 15:17 Total Visit Minutes 41 Visit Number 8/16 Number of ELECT[employer] GATHERING [employer] PERSON Visits 0 PT-OP-B Current Condition Start: 02/01/19 08:01 Freq: Status: Active Protocol: Document 02/01/19 10:35 HH (Rec: 02/01/19 12:26 HH [email or web address]) Current Condition History of Current Condition Onset Date since 17 yo Current Complaints chronic LBP, radiating L LE pain History of Current Condition Pt is a 23yo female that presents to clinic with chronic LBP and radiating R leg pain since she was 17yo. She states she started having achy and dull pain at center of lower back L>R who had difficulty to get out of bed for 2 months, and she went to see chiropractor who stated pt has L side curvature and protruded segments on lumbar region. She reports she did get better but her pain never goes away. Her pain has gotten worse since 3 months ago after she stopped working out and doing yoga. Her pain occasionally radiate to L side of the thigh and medial ankle . She stated her pain feels relieved with back stretch/ back decompression but worse with prolonged sitting and standing/ sleeing on L side. She went to ER last month due to unknown difficulty in breathing. CT scan showed negative findings, but her chiropractor visit from couple days ago stated she has protrusion at lumbar segments. Pt had PT eval last year but unable to get more visits due to limited insurance coverage. 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 Prior Treatments and Tests CT Scan = negative findings x-ray= negative findings chiropractor who stated pt has L side curvature and protruded segments on lumbar region Treatment Goals Patient/Caregiver Goals 1. To be pain free during daily activitive 2. 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 Likes new stretch exercises, cannot do leg lifts without pain. Has tried returning to gym and notes that she is only able to workout for a short time period before exacerbation of her back pain. Feels like she notices when she is rotating through her low back too much now but still has to think about stabilizing during exercises. Feels about 60% improved. Patient Reported Progress Improving PT-OP-F Manual Assessment Start: 02/01/19 08:01 Freq: Status: Active Protocol: Document 02/01/19 10:35 HH (Rec: 02/01/19 12:26 HH [email or web address]) Manual Assessments Soft Tissue Assessment Soft Tissue Mobility Assessment Significant tenderness to pressure at L parapsinals, QL and L1-L4 segments Joint Mobility Assessment Joint Mobility Assessment decreased joint mobility during lateral flexion at lumbar segements. PT-OP-J Posture/Palpation/Skin Start: 02/01/19 08:01 Freq: Status: Active Protocol: Document 02/01/19 10:35 HH (Rec: 02/01/19 12:26 HH [email or web address]) Posture Evaluation Position Standing Head/C-Spine Posture Forward Head Shoulder Posture (L) Rounded,(R) Rounded,(R) Elevated Hip Posture (L) Internally Rotated,(R) Externally Rotated PT-OP-K Range of Motion Start: 02/01/19 08:01 Freq: Status: Active Protocol: Document 02/01/19 10:35 HH (Rec: 02/01/19 12:26 HH [email or web address]) Lumbar Spine Range of Motion Lumbar Spine Percentage Testing Position Standing Flexion 80 Extension 80 Rotation Left 90 Rotation Right 90 Lateral Flexion Left 50 Lateral Flexion Right 50 ROM Limitations Bony Restriction Comments decreased segmental mobility during lateral flexion at lumbar segements. Active Degrees Flexion 70 Extension 60 PT-OP-L Special Tests Start: 02/01/19 08:01 Freq: Status: Active Protocol: Document 02/01/19 10:35 HH (Rec: 02/01/19 12:26 HH [email or web address]) Special Tests Lumbar Spine Special Tests Brennen Test Results -ve standing hip extension Test Results +VE on L Comments pain on L side with lumbar L rotation standing hip flexion Test Results +VE on L Comments pain on L side with lumbar L rotation Prone Instability Test Test Results +VE B Comments pain on L side. Straight Leg Raise Test Results +ve B Comments pain on L side. PT-OP-M Strength Start: 02/01/19 08:01 Freq: Status: Active Protocol: Document 02/01/19 10:35 HH (Rec: 02/01/19 12:26 HH [email or web address]) Hip Strength Hip Manual Muscle Testing Left Flexion (L2) 5 Normal Extension (S1) 4+ Good+ Abduction 4+ Good+ Adduction 5 Normal Right Flexion (L2) 5 Normal Extension (S1) 5 Normal Abduction 5 Normal Adduction 5 Normal PT-OP-Q Treatments Start: 02/01/19 08:01 Freq: Status: Active Protocol: Document 03/08/19 14:36 JG (Rec: 03/08/19 16:24 JG [email or web address]) Cardio Equipment Elliptical Duration (Minutes) 5 Resistance 5 Therapeutic Exercises Supine Exercises Resisted rotation Side bilateral Reps/Minutes 3x10 with 5 sec hold Comments Manually resisted bug Supine Exercise Name Bicycle Side bilateral Reps/Minutes 2x10 Comments Legs only with TA activation supine hip rotation Side bilateral Reps/Minutes 3x15 Comments hooklying knees fall to side with L/S staying flat Standing Exercises resisted side stepping Side bilateral Equipment Used yellow band Reps/Minutes 3x15 steps Comments Cuing for hip hinge hip hinge Standing Exercise Name hip hinge Side bilateral Reps/Minutes 3x10 reps Comments Cues for lumbar stabilization standing hip flexion Standing Exercise Name Standing marches Side bilateral Reps/Minutes 2x5 Comments Improved spinal control Other Exercises Bird dog Side bilateral Equipment Used ball on L/S for cuing Reps/Minutes 3x15 Comments Added arm movement, ball on L/ S for cuing Manual Therapy Treatment Soft Tissue Mobilization L QL Mobilization Type Other Body Position Sidelying Comments Sustained stretch PT-OP-T Assessment and Plan Start: 02/01/19 08:01 Freq: Status: Active Protocol: Document 03/08/19 14:36 JG (Rec: 03/08/19 16:24 JG [email or web address]) Physical Therapy Assessment Goals return to PLOF Impairment pt is unable to participate in yoga and workout routine Short Term Goal (STG) Pt will be able to dedrick yoga and workout 2 times a week with LBP no more than 4/10. STG Duration 5 weeks Group Home Goal (LTG) Pt will be fully able to dedrick yoga and workout 4 times a week with LBP no more than 2/ 10. LTG Duration 10 weeks HEP Impairment Pt does not have a HEP Group Home Goal (LTG) Pt will comply to HEP safely and independently to improver her trunk stability and muscular control LTG Duration 8 weeks activity tolerance Impairment pt unable to sit/ stand >20 minutes without pain Short Term Goal (STG) Pt will be able to sit/ stand >20 mins without increase in symptoms STG Duration 5 weeks Meter Engineer Goal (LTG) Pt will be able to sit/ stand >40 mins without increase in symptoms LTG Duration 10 weeks Oswestry LBP Impairment pt scores 52/100 (40-59% impairment) on Oswestry LBP questionnaire Short Term Goal (STG) pt will score <40/100 on Oswestry LBP questionnaire to improve her quality of life STG Duration 5 weeks Meter Engineer Goal (LTG) pt scores <20/100 on Oswestry LBP questionnaire to improve her quality of life LTG Duration 10 weeks Assessment Summary Assessment Improved lumbar stabilization with decreased L/S rotation during therex. Pt challenged with hip/core endurance. Physical Therapy Plan Frequency and Duration Frequency of Treatment 2x/Week Duration of Treatment 10 weeks Plan of Care Start Date 02/01/19 Plan of Care End Date 04/17/19 Next Visit Focus/Plan Next Note Type Treatment Note Next Visit Plan Review new exercises Cont core and hip strengthening with focus on motor control and L/S stabilization
--- NOTE | 2019-03-10 14:33 | PT.OTN ---
Current Diagnoses Dorsalgia, unspecified (03/10/19) Physical Therapy Treatment Note PT-OP-A Visit Information Start: 02/01/19 08:01 Freq: Status: Active Protocol: Document 03/10/19 13:55 MB (Rec: 03/10/19 14:04 MB [id number]) Out-Patient Physical Therapy Visit Information Visit Information Visit Type Treatment Note Visit Note Pt arrives 10 minutes late to appointment Visit Start Time 13:55 Visit Stop Time 14:30 Total Visit Minutes 35 Visit Number 02/07 Number of [employer]AMP[employer]UITING INTERN Visits 0 PT-OP-B Current Condition Start: 02/01/19 08:01 Freq: Status: Active Protocol: Document 02/01/19 10:35 HH (Rec: 02/01/19 12:26 HH [email or web address]) Current Condition History of Current Condition Onset Date since 17 yo Current Complaints chronic LBP, radiating L LE pain History of Current Condition Pt is a 23yo female that presents to clinic with chronic LBP and radiating R leg pain since she was 17yo. She states she started having achy and dull pain at center of lower back L>R who had difficulty to get out of bed for 2 months, and she went to see chiropractor who stated pt has L side curvature and protruded segments on lumbar region. She reports she did get better but her pain never goes away. Her pain has gotten worse since 3 months ago after she stopped working out and doing yoga. Her pain occasionally radiate to L side of the thigh and medial ankle . She stated her pain feels relieved with back stretch/ back decompression but worse with prolonged sitting and standing/ sleeing on L side. She went to ER last month due to unknown difficulty in breathing. CT scan showed negative findings, but her chiropractor visit from couple days ago stated she has protrusion at lumbar segments. Pt had PT eval last year but unable to get more visits due to limited insurance coverage. 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 Prior Treatments and Tests CT Scan = negative findings x-ray= negative findings chiropractor who stated pt has L side curvature and protruded segments on lumbar region Treatment Goals Patient/Caregiver Goals 1. To be pain free during daily activitive 2. 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 She worked two 3 hour days. PT-OP-F Manual Assessment Start: 02/01/19 08:01 Freq: Status: Active Protocol: Document 02/01/19 10:35 HH (Rec: 02/01/19 12:26 HH [email or web address]) Manual Assessments Soft Tissue Assessment Soft Tissue Mobility Assessment Significant tenderness to pressure at L parapsinals, QL and L1-L4 segments Joint Mobility Assessment Joint Mobility Assessment decreased joint mobility during lateral flexion at lumbar segements. PT-OP-J Posture/Palpation/Skin Start: 02/01/19 08:01 Freq: Status: Active Protocol: Document 02/01/19 10:35 HH (Rec: 02/01/19 12:26 HH [email or web address]) Posture Evaluation Position Standing Head/C-Spine Posture Forward Head Shoulder Posture (L) Rounded,(R) Rounded,(R) Elevated Hip Posture (L) Internally Rotated,(R) Externally Rotated PT-OP-K Range of Motion Start: 02/01/19 08:01 Freq: Status: Active Protocol: Document 02/01/19 10:35 HH (Rec: 02/01/19 12:26 HH [email or web address]) Lumbar Spine Range of Motion Lumbar Spine Percentage Testing Position Standing Flexion 80 Extension 80 Rotation Left 90 Rotation Right 90 Lateral Flexion Left 50 Lateral Flexion Right 50 ROM Limitations Bony Restriction Comments decreased segmental mobility during lateral flexion at lumbar segements. Active Degrees Flexion 70 Extension 60 PT-OP-L Special Tests Start: 02/01/19 08:01 Freq: Status: Active Protocol: Document 02/01/19 10:35 HH (Rec: 02/01/19 12:26 HH [email or web address]) Special Tests Lumbar Spine Special Tests Brennen Test Results -ve standing hip extension Test Results +VE on L Comments pain on L side with lumbar L rotation standing hip flexion Test Results +VE on L Comments pain on L side with lumbar L rotation Prone Instability Test Test Results +VE B Comments pain on L side. Straight Leg Raise Test Results +ve B Comments pain on L side. PT-OP-M Strength Start: 02/01/19 08:01 Freq: Status: Active Protocol: Document 02/01/19 10:35 HH (Rec: 02/01/19 12:26 HH [email or web address]) Hip Strength Hip Manual Muscle Testing Left Flexion (L2) 5 Normal Extension (S1) 4+ Good+ Abduction 4+ Good+ Adduction 5 Normal Right Flexion (L2) 5 Normal Extension (S1) 5 Normal Abduction 5 Normal Adduction 5 Normal PT-OP-Q Treatments Start: 02/01/19 08:01 Freq: Status: Active Protocol: Document 03/10/19 13:55 MB (Rec: 03/10/19 14:32 MB [id number]) Manual Therapy Treatment Other Other Manual Treatments Side lying rib recoil for QL B ; right iliopsoas MWM with PT providing pressure on trigger point and pt performing AROM right heel slide PT-OP-T Assessment and Plan Start: 02/01/19 08:01 Freq: Status: Active Protocol: Document 03/10/19 13:55 MB (Rec: 03/10/19 14:04 MB [id number]) Physical Therapy Assessment Rehab Potential Rehabilitation Potential Excellent Evaluation Complexity Number of Personal Factors/Comorbidities 1-2 Number of Body Systems Impaired 1-2 Clinical Presentation at Evaluation Stable Impairments Impairments Activity Tolerance,Functional Mobility,Gait,Pain,Posture, Soft Tissue Mobility,Strength Other Concerns Barriers to Rehabilitation depression psychological disorder Goals return to PLOF Impairment pt is unable to participate in yoga and workout routine Short Term Goal (STG) Pt will be able to dedrick yoga and workout 2 times a week with LBP no more than 4/10. STG Duration 5 weeks Steel Pourer Helper Goal (LTG) Pt will be fully able to dedrick yoga and workout 4 times a week with LBP no more than 2/ 10. LTG Duration 10 weeks HEP Impairment Pt does not have a HEP Prison Goal (LTG) Pt will comply to HEP safely and independently to improver her trunk stability and muscular control LTG Duration 8 weeks activity tolerance Impairment pt unable to sit/ stand >20 minutes without pain Short Term Goal (STG) Pt will be able to sit/ stand >20 mins without increase in symptoms STG Duration 5 weeks Prison Goal (LTG) Pt will be able to sit/ stand >40 mins without increase in symptoms LTG Duration 10 weeks Oswestry LBP Impairment pt scores 52/100 (40-59% impairment) on Oswestry LBP questionnaire Short Term Goal (STG) pt will score <40/100 on Oswestry LBP questionnaire to improve her quality of life STG Duration 5 weeks Steel Pourer Helper Goal (LTG) pt scores <20/100 on Oswestry LBP questionnaire to improve her quality of life LTG Duration 10 weeks Assessment Summary Assessment Pt con't with left iliopsoas and hip flexor tension that respond well to manual work. Will benefit from hook lying core progressive, pelvic realignment and review current HEP. Physical Therapy Plan Frequency and Duration Frequency of Treatment 2x/Week Duration of Treatment 10 weeks Plan of Care Start Date 02/01/19 Plan of Care End Date 04/17/19 Next Visit Focus/Plan Next Note Type Treatment Note Next Visit Plan Review new exercises Cont core and hip strengthening with focus on motor control and L/S stabilization
--- NOTE | 2019-03-16 13:39 | PT.OTN ---
Current Diagnoses Dorsalgia, unspecified (03/16/19) Physical Therapy Treatment Note PT-OP-A Visit Information Start: 02/01/19 08:01 Freq: Status: Active Protocol: Document 03/16/19 12:16 MB (Rec: 03/16/19 13:03 MB [id number]) Out-Patient Physical Therapy Visit Information Visit Information Visit Type Treatment Note Visit Start Time 12:16 Visit Stop Time 12:56 Total Visit Minutes 40 Visit Number 03/09 Number of STRING WINDING MACHINE OPERATOR Visits 0 PT-OP-B Current Condition Start: 02/01/19 08:01 Freq: Status: Active Protocol: Document 02/01/19 10:35 HH (Rec: 02/01/19 12:26 HH [email or web address]) Current Condition History of Current Condition Onset Date since 17 yo Current Complaints chronic LBP, radiating L LE pain History of Current Condition Pt is a 23yo female that presents to clinic with chronic LBP and radiating R leg pain since she was 17yo. She states she started having achy and dull pain at center of lower back L>R who had difficulty to get out of bed for 2 months, and she went to see chiropractor who stated pt has L side curvature and protruded segments on lumbar region. She reports she did get better but her pain never goes away. Her pain has gotten worse since 3 months ago after she stopped working out and doing yoga. Her pain occasionally radiate to L side of the thigh and medial ankle . She stated her pain feels relieved with back stretch/ back decompression but worse with prolonged sitting and standing/ sleeing on L side. She went to ER last month due to unknown difficulty in breathing. CT scan showed negative findings, but her chiropractor visit from couple days ago stated she has protrusion at lumbar segments. Pt had PT eval last year but unable to get more visits due to limited insurance coverage. 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 Prior Treatments and Tests CT Scan = negative findings x-ray= negative findings chiropractor who stated pt has L side curvature and protruded segments on lumbar region Treatment Goals Patient/Caregiver Goals 1. To be pain free during daily activitive 2. 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 This disturbed trying to sit through a movie. She occ has trouble sitting down with her boyfriend for dinner. Albina cross applesauce sitting isn't painful. She worked 3 days in the [employer] this week. PT-OP-F Manual Assessment Start: 02/01/19 08:01 Freq: Status: Active Protocol: Document 02/01/19 10:35 HH (Rec: 02/01/19 12:26 HH [email or web address]) Manual Assessments Soft Tissue Assessment Soft Tissue Mobility Assessment Significant tenderness to pressure at L parapsinals, QL and L1-L4 segments Joint Mobility Assessment Joint Mobility Assessment decreased joint mobility during lateral flexion at lumbar segements. PT-OP-J Posture/Palpation/Skin Start: 02/01/19 08:01 Freq: Status: Active Protocol: Document 02/01/19 10:35 HH (Rec: 02/01/19 12:26 HH [email or web address]) Posture Evaluation Position Standing Head/C-Spine Posture Forward Head Shoulder Posture (L) Rounded,(R) Rounded,(R) Elevated Hip Posture (L) Internally Rotated,(R) Externally Rotated PT-OP-K Range of Motion Start: 02/01/19 08:01 Freq: Status: Active Protocol: Document 02/01/19 10:35 HH (Rec: 02/01/19 12:26 HH [email or web address]) Lumbar Spine Range of Motion Lumbar Spine Percentage Testing Position Standing Flexion 80 Extension 80 Rotation Left 90 Rotation Right 90 Lateral Flexion Left 50 Lateral Flexion Right 50 ROM Limitations Bony Restriction Comments decreased segmental mobility during lateral flexion at lumbar segements. Active Degrees Flexion 70 Extension 60 PT-OP-L Special Tests Start: 02/01/19 08:01 Freq: Status: Active Protocol: Document 02/01/19 10:35 HH (Rec: 02/01/19 12:26 HH [email or web address]) Special Tests Lumbar Spine Special Tests Brennen Test Results -ve standing hip extension Test Results +VE on L Comments pain on L side with lumbar L rotation standing hip flexion Test Results +VE on L Comments pain on L side with lumbar L rotation Prone Instability Test Test Results +VE B Comments pain on L side. Straight Leg Raise Test Results +ve B Comments pain on L side. PT-OP-M Strength Start: 02/01/19 08:01 Freq: Status: Active Protocol: Document 02/01/19 10:35 HH (Rec: 02/01/19 12:26 HH [email or web address]) Hip Strength Hip Manual Muscle Testing Left Flexion (L2) 5 Normal Extension (S1) 4+ Good+ Abduction 4+ Good+ Adduction 5 Normal Right Flexion (L2) 5 Normal Extension (S1) 5 Normal Abduction 5 Normal Adduction 5 Normal PT-OP-Q Treatments Start: 02/01/19 08:01 Freq: Status: Active Protocol: Document 03/16/19 12:16 MB (Rec: 03/16/19 13:03 MB [id number]) Therapeutic Exercises Supine Exercises Resisted rotation Comments D/cd bug Comments D/cd Brennen stretch Supine Exercise Name Brennen stretch supine hip rotation Comments D/c at this time and add to core progression supine hip flexion Comments D/c at this time and add mini march to core progression in future TA activation - heel slide (heel parallel with table) Comments This exercise given as part of core progression in future, consider band TA activation - marching Comments This exercise given as part of core progression supine leg lift Comments D/cd--double or single supine hip abd Comments D/cd d/t too easy SLR Comments D/cd Prone Exercises quadruped lateral flexion Comments D/cd child pose Comments Pt has increased quad stretch, d/c cat cow Comments Good form, keep exercise plank Comments Keep, modified hands on plinth , on elbows, scapula back prone hip extension Comments D/cd prone bird dog Comments Quadriped and slide toes out Sidelying Exercises QL stretch Comments Keep Sitting Exercises Sitting on mat, stretch over therapy ball Sitting Exercise Name No ball at home, try at gym or sitting on one surface and lean over other. Comments Stretching over therapy ball, thoracic ext, lats, QL Rolling pin self-massage Comments Sitting rolling pin massage Rolling pin massage Comments Con't marching on ball Comments Hold at this time, no ball at home PT-OP-T Assessment and Plan Start: 02/01/19 08:01 Freq: Status: Active Protocol: Document 03/16/19 12:16 MB (Rec: 03/16/19 13:03 MB [id number]) Physical Therapy Assessment Rehab Potential Rehabilitation Potential Excellent Evaluation Complexity Number of Personal Factors/Comorbidities 1-2 Number of Body Systems Impaired 1-2 Clinical Presentation at Evaluation Stable Impairments Impairments Activity Tolerance,Functional Mobility,Gait,Pain,Posture, Soft Tissue Mobility,Strength Other Concerns Barriers to Rehabilitation depression psychological disorder Goals return to PLOF Impairment pt is unable to participate in yoga and workout routine Short Term Goal (STG) Pt will be able to dedrick yoga and workout 2 times a week with LBP no more than 4/10. STG Duration 5 weeks Assisted Goal (LTG) Pt will be fully able to dedrick yoga and workout 4 times a week with LBP no more than 2/ 10. LTG Duration 10 weeks HEP Impairment Pt does not have a HEP Assisted Goal (LTG) Pt will comply to HEP safely and independently to improver her trunk stability and muscular control LTG Duration 8 weeks activity tolerance Impairment pt unable to sit/ stand >20 minutes without pain Short Term Goal (STG) Pt will be able to sit/ stand >20 mins without increase in symptoms STG Duration 5 weeks Locomotive Observer Goal (LTG) Pt will be able to sit/ stand >40 mins without increase in symptoms LTG Duration 10 weeks Oswestry LBP Impairment pt scores 52/100 (40-59% impairment) on Oswestry LBP questionnaire Short Term Goal (STG) pt will score <40/100 on Oswestry LBP questionnaire to improve her quality of life STG Duration 5 weeks Assisted Goal (LTG) pt scores <20/100 on Oswestry LBP questionnaire to improve her quality of life LTG Duration 10 weeks Assessment Summary Assessment Reviewed current HEP and modified it. Did not have time to review standing exercises this date. Will benefit from hook lying core progressive, pelvic realignment, con't hip strengthening. Physical Therapy Plan Frequency and Duration Frequency of Treatment 2x/Week Duration of Treatment 10 weeks Plan of Care Start Date 02/01/19 Plan of Care End Date 04/17/19 Next Visit Focus/Plan Next Note Type Treatment Note Next Visit Plan Review current HEP, modify as needed.
--- NOTE | 2019-03-18 13:01 | PT.OTN ---
Current Diagnoses Dorsalgia, unspecified (03/18/19) Physical Therapy Treatment Note PT-OP-A Visit Information Start: 02/01/19 08:01 Freq: Status: Active Protocol: Document 03/18/19 12:19 MB (Rec: 03/18/19 12:27 MB [id number]) Out-Patient Physical Therapy Visit Information Visit Information Visit Type Treatment Note Visit Start Time 12:19 Visit Stop Time 13:00 Total Visit Minutes 41 Visit Number 04/09 Number of FABRIC SOURCER Visits 0 PT-OP-B Current Condition Start: 02/01/19 08:01 Freq: Status: Active Protocol: Document 02/01/19 10:35 HH (Rec: 02/01/19 12:26 HH [email or web address]) Current Condition History of Current Condition Onset Date since 17 yo Current Complaints chronic LBP, radiating L LE pain History of Current Condition Pt is a 23yo female that presents to clinic with chronic LBP and radiating R leg pain since she was 17yo. She states she started having achy and dull pain at center of lower back L>R who had difficulty to get out of bed for 2 months, and she went to see chiropractor who stated pt has L side curvature and protruded segments on lumbar region. She reports she did get better but her pain never goes away. Her pain has gotten worse since 3 months ago after she stopped working out and doing yoga. Her pain occasionally radiate to L side of the thigh and medial ankle . She stated her pain feels relieved with back stretch/ back decompression but worse with prolonged sitting and standing/ sleeing on L side. She went to ER last month due to unknown difficulty in breathing. CT scan showed negative findings, but her chiropractor visit from couple days ago stated she has protrusion at lumbar segments. Pt had PT eval last year but unable to get more visits due to limited insurance coverage. 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 Prior Treatments and Tests CT Scan = negative findings x-ray= negative findings chiropractor who stated pt has L side curvature and protruded segments on lumbar region Treatment Goals Patient/Caregiver Goals 1. 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 She is working on her posture. She has ovarian cysts and wonders if this is contributory to pain. PT-OP-F Manual Assessment Start: 02/01/19 08:01 Freq: Status: Active Protocol: Document 02/01/19 10:35 HH (Rec: 02/01/19 12:26 HH [email or web address]) Manual Assessments Soft Tissue Assessment Soft Tissue Mobility Assessment Significant tenderness to pressure at L parapsinals, QL and L1-L4 segments Joint Mobility Assessment Joint Mobility Assessment decreased joint mobility during lateral flexion at lumbar segements. PT-OP-J Posture/Palpation/Skin Start: 02/01/19 08:01 Freq: Status: Active Protocol: Document 02/01/19 10:35 HH (Rec: 02/01/19 12:26 HH [email or web address]) Posture Evaluation Position Standing Head/C-Spine Posture Forward Head Shoulder Posture (L) Rounded,(R) Rounded,(R) Elevated Hip Posture (L) Internally Rotated,(R) Externally Rotated PT-OP-K Range of Motion Start: 02/01/19 08:01 Freq: Status: Active Protocol: Document 02/01/19 10:35 HH (Rec: 02/01/19 12:26 HH [email or web address]) Lumbar Spine Range of Motion Lumbar Spine Percentage Testing Position Standing Flexion 80 Extension 80 Rotation Left 90 Rotation Right 90 Lateral Flexion Left 50 Lateral Flexion Right 50 ROM Limitations Bony Restriction Comments decreased segmental mobility during lateral flexion at lumbar segements. Active Degrees Flexion 70 Extension 60 PT-OP-L Special Tests Start: 02/01/19 08:01 Freq: Status: Active Protocol: Document 02/01/19 10:35 HH (Rec: 02/01/19 12:26 HH [email or web address]) Special Tests Lumbar Spine Special Tests Brennen Test Results -ve standing hip extension Test Results +VE on L Comments pain on L side with lumbar L rotation standing hip flexion Test Results +VE on L Comments pain on L side with lumbar L rotation Prone Instability Test Test Results +VE B Comments pain on L side. Straight Leg Raise Test Results +ve B Comments pain on L side. PT-OP-M Strength Start: 02/01/19 08:01 Freq: Status: Active Protocol: Document 02/01/19 10:35 HH (Rec: 02/01/19 12:26 HH [email or web address]) Hip Strength Hip Manual Muscle Testing Left Flexion (L2) 5 Normal Extension (S1) 4+ Good+ Abduction 4+ Good+ Adduction 5 Normal Right Flexion (L2) 5 Normal Extension (S1) 5 Normal Abduction 5 Normal Adduction 5 Normal PT-OP-Q Treatments Start: 02/01/19 08:01 Freq: Status: Active Protocol: Document 03/18/19 12:19 MB (Rec: 03/18/19 12:50 MB [id number]) Therapeutic Exercises Standing Exercises Scapular retraction, row and shoulder extension with band Comments Scapular retraction, row and shoulder extension with band level 2, core bend over row Comments D/cd [place] curl Comments D/cd deadlift Comments D/cd resisted side stepping Comments Deferred and will add later hip hinge Comments Defer at this time. SLS with weighted ball Comments D/cd RDL Comments D/cd standing hip extension Comments Con't and revise as needed with band standing hip flexion Comments Con't and revise as needed, top if pain PT-OP-T Assessment and Plan Start: 02/01/19 08:01 Freq: Status: Active Protocol: Document 03/18/19 12:19 MB (Rec: 03/18/19 12:24 MB [id number]) Physical Therapy Assessment Rehab Potential Rehabilitation Potential Excellent Evaluation Complexity Number of Personal Factors/Comorbidities 1-2 Number of Body Systems Impaired 1-2 Clinical Presentation at Evaluation Stable Impairments Impairments Activity Tolerance,Functional Mobility,Gait,Pain,Posture, Soft Tissue Mobility,Strength Other Concerns Barriers to Rehabilitation depression psychological disorder Goals return to PLOF Impairment pt is unable to participate in yoga and workout routine Short Term Goal (STG) Pt will be able to dedrick yoga and workout 2 times a week with LBP no more than 4/10. STG Duration 5 weeks Prison Goal (LTG) Pt will be fully able to dedrick yoga and workout 4 times a week with LBP no more than 2/ 10. LTG Duration 10 weeks HEP Impairment Pt does not have a HEP Prison Goal (LTG) Pt will comply to HEP safely and independently to improver her trunk stability and muscular control LTG Duration 8 weeks activity tolerance Impairment pt unable to sit/ stand >20 minutes without pain Short Term Goal (STG) Pt will be able to sit/ stand >20 mins without increase in symptoms STG Duration 5 weeks Box Sealing Machine Catcher Goal (LTG) Pt will be able to sit/ stand >40 mins without increase in symptoms LTG Duration 10 weeks Oswestry LBP Impairment pt scores 52/100 (40-59% impairment) on Oswestry LBP questionnaire Short Term Goal (STG) pt will score <40/100 on Oswestry LBP questionnaire to improve her quality of life STG Duration 5 weeks Prison Goal (LTG) pt scores <20/100 on Oswestry LBP questionnaire to improve her quality of life LTG Duration 10 weeks Assessment Summary Assessment Revised standing exercises. Will benefit from hook lying core progressive, pelvic realignment, con't hip strengthening. Physical Therapy Plan Frequency and Duration Frequency of Treatment 2x/Week Duration of Treatment 10 weeks Plan of Care Start Date 02/01/19 Plan of Care End Date 04/17/19 Next Visit Focus/Plan Next Note Type Treatment Note Next Visit Plan Add pelvic realignment exercises, con't progression.
--- NOTE | 2019-03-25 12:24 | PT-OP ANOTE ---
Pt arrives to appointment. She states that she started her cycle and is in a lot of abdominal pain today. PT and pt agree to cancel appointment today at provider's request. Will add another treatment onto treatment duration. Goal is to progress pelvic realignment and hip strengthening and core strengthening exercises, some manual treatment as needed.
--- NOTE | 2019-03-29 15:55 | PT.OTN ---
Current Diagnoses Dorsalgia, unspecified (03/29/19) Physical Therapy Treatment Note PT-OP-A Visit Information Start: 02/01/19 08:01 Freq: Status: Active Protocol: Document 03/29/19 14:34 MB (Rec: 03/29/19 15:55 MB [id number]) Out-Patient Physical Therapy Visit Information Visit Information Visit Type Treatment Note Visit Start Time 14:34 Visit Stop Time 14:15 Total Visit Minutes 41 Visit Number 05/09 Number of PERSONAL CONSULTANT Visits 0 PT-OP-B Current Condition Start: 02/01/19 08:01 Freq: Status: Active Protocol: Document 02/01/19 10:35 HH (Rec: 02/01/19 12:26 HH [email or web address]) Current Condition History of Current Condition Onset Date since 17 yo Current Complaints chronic LBP, radiating L LE pain History of Current Condition Pt is a 23yo female that presents to clinic with chronic LBP and radiating R leg pain since she was 17yo. She states she started having achy and dull pain at center of lower back L>R who had difficulty to get out of bed for 2 months, and she went to see chiropractor who stated pt has L side curvature and protruded segments on lumbar region. She reports she did get better but her pain never goes away. Her pain has gotten worse since 3 months ago after she stopped working out and doing yoga. Her pain occasionally radiate to L side of the thigh and medial ankle . She stated her pain feels relieved with back stretch/ back decompression but worse with prolonged sitting and standing/ sleeing on L side. She went to ER last month due to unknown difficulty in breathing. CT scan showed negative findings, but her chiropractor visit from couple days ago stated she has protrusion at lumbar segments. Pt had PT eval last year but unable to get more visits due to limited insurance coverage. 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 Prior Treatments and Tests CT Scan = negative findings x-ray= negative findings chiropractor who stated pt has L side curvature and protruded segments on lumbar region Treatment Goals Patient/Caregiver Goals 1. To be pain free during daily activitive 2. 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 She has increased stress with work as [employer] causing pain, financial uncertainty and concern about paying bills and getting groceries and mental health concerns. She is seeking help from mental health provider. PT-OP-F Manual Assessment Start: 02/01/19 08:01 Freq: Status: Active Protocol: Document 02/01/19 10:35 HH (Rec: 02/01/19 12:26 HH [email or web address]) Manual Assessments Soft Tissue Assessment Soft Tissue Mobility Assessment Significant tenderness to pressure at L parapsinals, QL and L1-L4 segments Joint Mobility Assessment Joint Mobility Assessment decreased joint mobility during lateral flexion at lumbar segements. PT-OP-J Posture/Palpation/Skin Start: 02/01/19 08:01 Freq: Status: Active Protocol: Document 02/01/19 10:35 HH (Rec: 02/01/19 12:26 HH [email or web address]) Posture Evaluation Position Standing Head/C-Spine Posture Forward Head Shoulder Posture (L) Rounded,(R) Rounded,(R) Elevated Hip Posture (L) Internally Rotated,(R) Externally Rotated PT-OP-K Range of Motion Start: 02/01/19 08:01 Freq: Status: Active Protocol: Document 02/01/19 10:35 HH (Rec: 02/01/19 12:26 HH [email or web address]) Lumbar Spine Range of Motion Lumbar Spine Percentage Testing Position Standing Flexion 80 Extension 80 Rotation Left 90 Rotation Right 90 Lateral Flexion Left 50 Lateral Flexion Right 50 ROM Limitations Bony Restriction Comments decreased segmental mobility during lateral flexion at lumbar segements. Active Degrees Flexion 70 Extension 60 PT-OP-L Special Tests Start: 02/01/19 08:01 Freq: Status: Active Protocol: Document 02/01/19 10:35 HH (Rec: 02/01/19 12:26 HH [email or web address]) Special Tests Lumbar Spine Special Tests Brennen Test Results -ve standing hip extension Test Results +VE on L Comments pain on L side with lumbar L rotation standing hip flexion Test Results +VE on L Comments pain on L side with lumbar L rotation Prone Instability Test Test Results +VE B Comments pain on L side. Straight Leg Raise Test Results +ve B Comments pain on L side. PT-OP-M Strength Start: 02/01/19 08:01 Freq: Status: Active Protocol: Document 02/01/19 10:35 HH (Rec: 02/01/19 12:26 HH [email or web address]) Hip Strength Hip Manual Muscle Testing Left Flexion (L2) 5 Normal Extension (S1) 4+ Good+ Abduction 4+ Good+ Adduction 5 Normal Right Flexion (L2) 5 Normal Extension (S1) 5 Normal Abduction 5 Normal Adduction 5 Normal PT-OP-Q Treatments Start: 02/01/19 08:01 Freq: Status: Active Protocol: Document 03/29/19 14:34 MB (Rec: 03/29/19 15:55 MB [id number]) Therapeutic Exercises Supine Exercises Emotional [place] Technique Tapping Comments EFT tapping to decrease pain related to chronic issues Pelvic realignment exercises Comments Pelvic realignment exercises Self-Care/Home Management Treatment Education Other Education Body mechanics at work, benefits of nasal breathing and EFT tapping to encourage parasympathetic vs sympathic response, benefits of SI belt, follow-up with other care providers regarding stressors PT-OP-T Assessment and Plan Start: 02/01/19 08:01 Freq: Status: Active Protocol: Document 03/29/19 14:34 MB (Rec: 03/29/19 15:55 MB [id number]) Physical Therapy Assessment Rehab Potential Rehabilitation Potential Excellent Evaluation Complexity Number of Personal Factors/Comorbidities 1-2 Number of Body Systems Impaired 1-2 Clinical Presentation at Evaluation Stable Impairments Impairments Activity Tolerance,Functional Mobility,Gait,Pain,Posture, Soft Tissue Mobility,Strength Other Concerns Barriers to Rehabilitation depression psychological disorder Goals return to PLOF Impairment pt is unable to participate in yoga and workout routine Short Term Goal (STG) Pt will be able to dedrick yoga and workout 2 times a week with LBP no more than 4/10. STG Duration 5 weeks Agricultural Extension Officer Goal (LTG) Pt will be fully able to dedirck yoga and workout 4 times a week with LBP no more than 2/ 10. LTG Duration 10 weeks HEP Impairment Pt does not have a HEP Agricultural Extension Officer Goal (LTG) Pt will comply to HEP safely and independently to improver her trunk stability and muscular control LTG Duration 8 weeks activity tolerance Impairment pt unable to sit/ stand >20 minutes without pain Short Term Goal (STG) Pt will be able to sit/ stand >20 mins without increase in symptoms STG Duration 5 weeks Agricultural Extension Officer Goal (LTG) Pt will be able to sit/ stand >40 mins without increase in symptoms LTG Duration 10 weeks Oswestry LBP Impairment pt scores 52/100 (40-59% impairment) on Oswestry LBP questionnaire Short Term Goal (STG) pt will score <40/100 on Oswestry LBP questionnaire to improve her quality of life STG Duration 5 weeks Agricultural Extension Officer Goal (LTG) pt scores <20/100 on Oswestry LBP questionnaire to improve her quality of life LTG Duration 10 weeks Assessment Summary Assessment Pt's increased life stressors likely affect her left sided pain near SI joint. Given this , initiated relaxation exercise sequence this date. Given work requirements as [employer] (bending and lifting) and pain with work, she may benefit from a SI belt and order faxed to PCP. Consider [place] breathing, con't hip strengthening. Physical Therapy Plan Frequency and Duration Frequency of Treatment 2x/Week Duration of Treatment 10 weeks Plan of Care Start Date 02/01/19 Plan of Care End Date 04/17/19 Next Visit Focus/Plan Next Note Type Treatment Note Next Visit Plan Consider further relaxation exercises, follow-up about SI belt as able.
--- NOTE | 2019-04-06 07:48 | PT-IP ANOTE ---
PT calls pt. She forgot appointment this morning. She is aware of appointment on Thursday and plans to attend then.
--- NOTE | 2019-04-08 12:31 | PT-OP ANOTE ---
Pt no shows to appointment. This is second no show this week. PT called pt on her last no show earlier in the week to remind her of this appointment and she stated she would be attending appointment. PT leaves message today and asks pt to call back to state whether or not she will attend 04/26/19 appointment. If she calls and states she will not come to appointment and does not reschedule, will d/c PT. If she no shows next appointment, will d/t PT.
--- NOTE | 2019-04-26 14:28 | PT.OTN ---
Current Diagnoses Dorsalgia, unspecified (04/26/19) Physical Therapy Treatment Note PT-OP-A Visit Information Start: 02/01/19 08:01 Freq: Status: Active Protocol: Document 04/26/19 13:56 MB (Rec: 04/26/19 14:28 MB [id number]) Out-Patient Physical Therapy Visit Information Visit Information Visit Type Treatment Note Visit Note Shortened treatment d/t pt arrives late and d/c findings and needs completed at 1426 Visit Start Time 13:56 Visit Stop Time 14:26 Total Visit Minutes 30 Visit Number 13/16 Number of ASSISTANT DIRECTOR OF SECURITY Visits 0 PT-OP-B Current Condition Start: 02/01/19 08:01 Freq: Status: Active Protocol: Document 02/01/19 10:35 HH (Rec: 02/01/19 12:26 HH [email or web address]) Current Condition History of Current Condition Onset Date since 17 yo Current Complaints chronic LBP, radiating L LE pain History of Current Condition Pt is a 23yo female that presents to clinic with chronic LBP and radiating R leg pain since she was 17yo. She states she started having achy and dull pain at center of lower back L>R who had difficulty to get out of bed for 2 months, and she went to see chiropractor who stated pt has L side curvature and protruded segments on lumbar region. She reports she did get better but her pain never goes away. Her pain has gotten worse since 3 months ago after she stopped working out and doing yoga. Her pain occasionally radiate to L side of the thigh and medial ankle . She stated her pain feels relieved with back stretch/ back decompression but worse with prolonged sitting and standing/ sleeing on L side. She went to ER last month due to unknown difficulty in breathing. CT scan showed negative findings, but her chiropractor visit from couple days ago stated she has protrusion at lumbar segments. Pt had PT eval last year but unable to get more visits due to limited insurance coverage. 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 Prior Treatments and Tests CT Scan = negative findings x-ray= negative findings chiropractor who stated pt has L side curvature and protruded segments on lumbar region Treatment Goals Patient/Caregiver Goals 1. To be pain free during daily activitive 2. 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 She is starting a new job tomorrow. She is doing a lot of self-care including going to her grand-parents in the morning to do her exercise routine. She is going to stop going to her therapist and psychiatrist. PT-OP-F Manual Assessment Start: 02/01/19 08:01 Freq: Status: Active Protocol: Document 02/01/19 10:35 HH (Rec: 02/01/19 12:26 HH [email or web address]) Manual Assessments Soft Tissue Assessment Soft Tissue Mobility Assessment Significant tenderness to pressure at L parapsinals, QL and L1-L4 segments Joint Mobility Assessment Joint Mobility Assessment decreased joint mobility during lateral flexion at lumbar segements. PT-OP-J Posture/Palpation/Skin Start: 02/01/19 08:01 Freq: Status: Active Protocol: Document 02/01/19 10:35 HH (Rec: 02/01/19 12:26 HH [email or web address]) Posture Evaluation Position Standing Head/C-Spine Posture Forward Head Shoulder Posture (L) Rounded,(R) Rounded,(R) Elevated Hip Posture (L) Internally Rotated,(R) Externally Rotated PT-OP-K Range of Motion Start: 02/01/19 08:01 Freq: Status: Active Protocol: Document 02/01/19 10:35 HH (Rec: 02/01/19 12:26 HH [email or web address]) Lumbar Spine Range of Motion Lumbar Spine Percentage Testing Position Standing Flexion 80 Extension 80 Rotation Left 90 Rotation Right 90 Lateral Flexion Left 50 Lateral Flexion Right 50 ROM Limitations Bony Restriction Comments decreased segmental mobility during lateral flexion at lumbar segements. Active Degrees Flexion 70 Extension 60 PT-OP-L Special Tests Start: 02/01/19 08:01 Freq: Status: Active Protocol: Document 02/01/19 10:35 HH (Rec: 02/01/19 12:26 HH [email or web address]) Special Tests Lumbar Spine Special Tests Brennen Test Results -ve standing hip extension Test Results +VE on L Comments pain on L side with lumbar L rotation standing hip flexion Test Results +VE on L Comments pain on L side with lumbar L rotation Prone Instability Test Test Results +VE B Comments pain on L side. Straight Leg Raise Test Results +ve B Comments pain on L side. PT-OP-M Strength Start: 02/01/19 08:01 Freq: Status: Active Protocol: Document 02/01/19 10:35 HH (Rec: 02/01/19 12:26 HH [email or web address]) Hip Strength Hip Manual Muscle Testing Left Flexion (L2) 5 Normal Extension (S1) 4+ Good+ Abduction 4+ Good+ Adduction 5 Normal Right Flexion (L2) 5 Normal Extension (S1) 5 Normal Abduction 5 Normal Adduction 5 Normal PT-OP-Q Treatments Start: 02/01/19 08:01 Freq: Status: Active Protocol: Document 04/26/19 13:56 MB (Rec: 04/26/19 14:28 MB [id number]) Therapeutic Exercises Supine Exercises Core progression Comments Core progression this date for transverse ab and obliques PT-OP-T Assessment and Plan Start: 02/01/19 08:01 Freq: Status: Active Protocol: Document 04/26/19 13:56 MB (Rec: 04/26/19 14:28 MB [id number]) Physical Therapy Assessment Rehab Potential Rehabilitation Potential Excellent Evaluation Complexity Number of Personal Factors/Comorbidities 1-2 Number of Body Systems Impaired 1-2 Clinical Presentation at Evaluation Stable Impairments Impairments Activity Tolerance,Functional Mobility,Gait,Pain,Posture, Soft Tissue Mobility,Strength Other Concerns Barriers to Rehabilitation depression psychological disorder Goals return to PLOF Impairment pt is unable to participate in yoga and workout routine Short Term Goal (STG) Pt will be able to dedrick yoga and workout 2 times a week with LBP no more than 4/10. STG Duration 5 weeks Senior Bookkeeper Goal (LTG) Pt will be fully able to dedrick yoga and workout 4 times a week with LBP no more than 2/ 10. 04/26/19: Pt states that she is working out 5x/wk up to 20 minutes. She is doing her modified routine of therapy exercises and yoga. She is hiking 3x/wk. LTG Duration 10 weeks HEP Impairment Pt does not have a HEP Long-Term Goal (LTG) Pt will comply to HEP safely and independently to improver her trunk stability and muscular control 04/26/19: Pt is performing HEP. LTG Duration 8 weeks activity tolerance Impairment pt unable to sit/ stand >20 minutes without pain Short Term Goal (STG) Pt will be able to sit/ stand >20 mins without increase in symptoms 04/26/19: Pt could stand for 90 minutes last night to make dinner. Sitting can be painful . Thirty minute car ride is fine. STG Duration 5 weeks Senior Bookkeeper Goal (LTG) Pt will be able to sit/ stand >40 mins without increase in symptoms See comments above in STG section LTG Duration 10 weeks Oswestry LBP Impairment pt scores 52/100 (40-59% impairment) on Oswestry LBP questionnaire Short Term Goal (STG) pt will score <40/100 on Oswestry LBP questionnaire to improve her quality of life STG Duration 5 weeks Long-Term Goal (LTG) pt scores <20/100 on Oswestry LBP questionnaire to improve her quality of life 04/26/19: Oswestry reflects 30% impairment LTG Duration 10 weeks Assessment Summary Assessment Pt has progressed towards all goals since starting PT and these include functional, exrecise and pain goals. She has met exercise goals. She has made lifestyle changes and is starting a new job. Progressed core exercises this date. Pt has maximized PT potential. PT encourages pt to follow-up with providers about her medication/ psyhosocial issues. Reviewed all her exercises today and provided second set of paper handouts. Will d/c PT.
--- NOTE | 2019-04-26 14:31 | PT.OPPOC ---
Current Diagnoses Dorsalgia, unspecified (04/26/19) Visit Care Team Role Provider Type Lillian Vines DO Attending Provider Physician Primary Care Provider Specialty: Family [facility] Address: [address] [place] [address], [facility] [address], [place], [address] Email: [email or web address] Plan Of Care PT-OP-T Assessment and Plan Start: 02/01/19 08:01 Freq: Status: Active Protocol: Document 04/26/19 13:56 MB (Rec: 04/26/19 14:31 MB [id number]) Physical Therapy Plan Frequency and Duration Frequency of Treatment 1 treatment Duration of Treatment 1 treatment Plan of Care Start Date 04/26/19 Plan of Care End Date 04/26/19 Plan of Care Dates Plan of Care Start Date 04/26/19 Plan of Care End Date 04/26/19
--- NOTE | 2019-04-26 14:33 | PT.OPPOC ---
Current Diagnoses Dorsalgia, unspecified (04/26/19) Visit Care Team Role Provider Type Lillian Vines DO Attending Provider Physician Primary Care Provider Specialty: Family [facility] Address: [address] [place] [address], [facility] [address], [place], [address] Email: [email or web address] Plan Of Care PT-OP-T Assessment and Plan Start: 02/01/19 08:01 Freq: Status: Active Protocol: Document 04/26/19 13:56 MB (Rec: 04/26/19 14:31 MB [id number]) Physical Therapy Plan Frequency and Duration Frequency of Treatment 1 treatment Duration of Treatment 1 treatment Plan of Care Start Date 04/26/19 Plan of Care End Date 04/26/19 Plan of Care Dates Plan of Care Start Date 04/26/19 Plan of Care End Date 04/26/19
--- NOTE | 2019-04-26 14:34 | PT.OPDS ---
Current Diagnoses Dorsalgia, unspecified (04/26/19) Visit Care Team Role Provider Type Lillian Vines DO Attending Provider Physician Primary Care Provider Specialty: Family Practice Address: [address] [place] [address], [address], [place], [address] Email: [email or web address] Visit Number Visit Number Discharge Summary PT-OP-B Current Condition Start: 02/01/19 08:01 Freq: Status: Active Protocol: Document 02/01/19 10:35 HH (Rec: 02/01/19 12:26 HH [email or web address]) Current Condition History of Current Condition Onset Date since 17 yo Current Complaints chronic LBP, radiating L LE pain History of Current Condition Pt is a 23yo female that presents to clinic with chronic LBP and radiating R leg pain since she was 17yo. She states she started having achy and dull pain at center of lower back L>R who had difficulty to get out of bed for 2 months, and she went to see chiropractor who stated pt has L side curvature and protruded segments on lumbar region. She reports she did get better but her pain never goes away. Her pain has gotten worse since 3 months ago after she stopped working out and doing yoga. Her pain occasionally radiate to L side of the thigh and medial ankle . She stated her pain feels relieved with back stretch/ back decompression but worse with prolonged sitting and standing/ sleeing on L side. She went to ER last month due to unknown difficulty in breathing. CT scan showed negative findings, but her chiropractor visit from couple days ago stated she has protrusion at lumbar segments. Pt had PT eval last year but unable to get more visits due to limited insurance coverage. 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 Prior Treatments and Tests CT Scan = negative findings x-ray= negative findings chiropractor who stated pt has L side curvature and protruded segments on lumbar region Treatment Goals Patient/Caregiver Goals 1. 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 She is starting a new job tomorrow. She is doing a lot of self-care including going to her grand-parents in the morning to do her exercise routine. She is going to stop going to her therapist and psychiatrist. PT-OP-F Manual Assessment Start: 02/01/19 08:01 Freq: Status: Active Protocol: Document 02/01/19 10:35 HH (Rec: 02/01/19 12:26 HH [email or web address]) Manual Assessments Soft Tissue Assessment Soft Tissue Mobility Assessment Significant tenderness to pressure at L parapsinals, QL and L1-L4 segments Joint Mobility Assessment Joint Mobility Assessment decreased joint mobility during lateral flexion at lumbar segements. PT-OP-J Posture/Palpation/Skin Start: 02/01/19 08:01 Freq: Status: Active Protocol: Document 02/01/19 10:35 HH (Rec: 02/01/19 12:26 HH [email or web address]) Posture Evaluation Position Standing Head/C-Spine Posture Forward Head Shoulder Posture (L) Rounded,(R) Rounded,(R) Elevated Hip Posture (L) Internally Rotated,(R) Externally Rotated PT-OP-K Range of Motion Start: 02/01/19 08:01 Freq: Status: Active Protocol: Document 02/01/19 10:35 HH (Rec: 02/01/19 12:26 HH [email or web address]) Lumbar Spine Range of Motion Lumbar Spine Percentage Testing Position Standing Flexion 80 Extension 80 Rotation Left 90 Rotation Right 90 Lateral Flexion Left 50 Lateral Flexion Right 50 ROM Limitations Bony Restriction Comments decreased segmental mobility during lateral flexion at lumbar segements. Active Degrees Flexion 70 Extension 60 PT-OP-L Special Tests Start: 02/01/19 08:01 Freq: Status: Active Protocol: Document 02/01/19 10:35 HH (Rec: 02/01/19 12:26 HH [email or web address]) Special Tests Lumbar Spine Special Tests Brennen Test Results -ve standing hip extension Test Results +VE on L Comments pain on L side with lumbar L rotation standing hip flexion Test Results +VE on L Comments pain on L side with lumbar L rotation Prone Instability Test Test Results +VE B Comments pain on L side. Straight Leg Raise Test Results +ve B Comments pain on L side. PT-OP-M Strength Start: 02/01/19 08:01 Freq: Status: Active Protocol: Document 02/01/19 10:35 HH (Rec: 02/01/19 12:26 HH [email or web address]) Hip Strength Hip Manual Muscle Testing Left Flexion (L2) 5 Normal Extension (S1) 4+ Good+ Abduction 4+ Good+ Adduction 5 Normal Right Flexion (L2) 5 Normal Extension (S1) 5 Normal Abduction 5 Normal Adduction 5 Normal PT-OP-T Assessment and Plan Start: 02/01/19 08:01 Freq: Status: Active Protocol: Document 04/26/19 13:56 MB (Rec: 04/26/19 14:31 MB [id number]) Physical Therapy Plan Frequency and Duration Frequency of Treatment 1 treatment Duration of Treatment 1 treatment Plan of Care Start Date 04/26/19 Plan of Care End Date 04/26/19
== END 2019-04-26 16:00 ==
LOC: PHYS 13:45
PROVIDERS: PCP Family Medicine; Visit Provider Family Medicine
DX: M54.9 Dorsalgia, unspecified (principal)
CPT/HCPCS: 97110; 97140; 97161; 97535

== ENCOUNTER → 2019-06-09 09:30 | Outpatient (CLI) | payer OTHER, MEDICAID, SELFPAY ==
--- NOTE | 2019-06-09 10:36 | DI.CT.S_ITS ---
PROCEDURE: CT ABDOMEN PELVIS W CON INDICATIONS: Rectal quadrant abdominal pain. TECHNIQUE: After the administration of oral and intravenous contrast, 5 mm thick sections acquired from the diaphragms to the symphysis. 5 mm thick coronal and sagittal reformats were performed. For radiation dose reduction, the following was used: automated exposure control, adjustment of mA and/or kV according to patient size. COMPARISON: [facility], [place], PELVIC COMPLETE, 03/19/2014, 1:16. [facility], CT, CT ANGIO CHEST PE PROTOCOL, 08/16/2018, 22:26. [facility], CT, KIDNEY/ URETER/BLADDER, 06/11/2017, 19:09. FINDINGS: Image quality: Excellent. ABDOMEN: Lung bases: Bibasilar dependent atelectasis. Heart size is normal. Solid organs: Liver is normal in size and enhancement. Gallbladder is normal. Biliary system is non-dilated. Pancreas enhances normally. Spleen is normal in size and enhancement. No adrenal nodules. Kidneys are normal in size and enhancement, without hydronephrosis. Peritoneum and bowel: Stomach, small bowel, and colon loops are normal in caliber and wall thickness. Normal appendix. No free fluid or air. Nodes and vessels: No retroperitoneal or mesenteric adenopathy. Aorta and inferior vena cava are normal in caliber. Miscellaneous: No ventral hernias. PELVIS: Genitourinary: Bladder wall thickness is normal. There is a 6.4 cm left ovarian cyst. Right ovary is normal. Uterus is unremarkable. No pathological free fluid in pelvis. Miscellaneous: No inguinal hernias or adenopathy. Bones: No suspicious bony lesions. No vertebral body compression fractures. A sclerotic focus in the left iliac bone is unchanged. IMPRESSION: 1. Normal appendix. 2. A 3.4 cm left ovarian cyst. 3. No free fluid in pelvis which Dictated by: Christa Huber M.D. on 06/09/2019 at 12:47 Approved by: Christa Huber M.D. on 06/09/2019 at 16:35
== END ==
PROVIDERS: PCP Family Medicine; Visit Provider Family Medicine
DX: R10.9 Unspecified abdominal pain (principal); N83.202 Unspecified ovarian cyst, left side
CPT/HCPCS: 74177; Q9967

== ENCOUNTER → 2023-11-16 09:17 | Outpatient (CLI) | payer OTHER, MEDICAID, SELFPAY ==
[2023-11-16 09:59] LABS: Add Manual Diff / Slide Review NO; Basophils Absolute Auto 0 /uL (0-100); Basophils Percent Auto 0.3 % (0-2); Eosinophils Absolute Auto 400 /uL (0-450); Eosinophils Percent Auto 4.7 % (2-4); Hematocrit 41.6 % (36-46); Hemoglobin 14.2 g/dL (12.0-16.0); Lymphocytes Absolute Auto 3100 /uL (1100-4500); Lymphocytes Percent Auto 35.1 % (25-40); Mean Corpuscular HGB Conc 34.1 % (30-36); Mean Corpuscular Hemoglobin 29.2 PG (26-34); Mean Corpuscular Volume 85.7 fL (80-100); Monocytes Absolute Auto 600 /uL (0-900); Monocytes Percent Auto 6.8 % (3-14); Neutrophils Absolute Auto 4700 /uL (1500-7000); Neutrophils Percent Auto 53.1 % (50-75); Platelet Count 302 X10^3/uL (150-400); Red Blood Cell Count 4.86 X10^6/uL (4.0-5.2); Red Cell Distribution Width 13.3 % (11.6-14.8); White Blood Cell Count 8.8 X10^3/uL (4.5-11.0)
[2023-11-16 11:13] LABS: HEMOLYSIS < 15 (0-50); Iron 85 ug/dL (37-170)
[2023-11-16 11:22] LABS: Alanine Aminotransferase 18 IU/L (<35); Albumin 4.5 g/dL (3.5-5.0); Albumin Globulin Ratio 1.7 (1.0-2.8); Alkaline Phosphatase 54 U/L (38-126); Aspartate Aminotransferase 19 IU/L (14-36); BUN Creatinine Ratio 21.2 (6-22); Bilirubin Total 0.5 mg/dL (0.2-1.3); Blood Urea Nitrogen 14 mg/dL (7-17); Calcium 9.1 mg/dL (8.4-10.2); Carbon Dioxide 26 mmol/L (22-32); Chloride 106 mmol/L (98-107); Cholesterol 144 mg/dL (140-199); Estimated Glomerular Filt Rate > 60 mL/min (>60); Globulin 2.6 g/dL (1.7-4.1); Glucose 96 mg/dL (70-100); HDL Cholesterol 40 mg/dL (40-60); HEMOLYSIS < 15 (0-50); LDL Cholesterol Calculated 85 mg/dL (<100); Potassium 4.3 mmol/L (3.4-5.1); Sodium 138 mmol/L (137-145); Total Protein 7.1 g/dL (6.3-8.2); Triglycerides 95 mg/dL (35-150)
[2023-11-16 11:26] LABS: Percent Iron Saturation 25 % (15-50); Total Iron Binding Capacity 336 ug/dL (265-497); Transferrin 249 mg/dL (206-381)
[2023-11-16 11:44] LABS: TSH w/ Reflex to FT4 0.98 uIU/mL (0.47-4.68)
[2023-11-16 11:55] LABS: Ferritin 28 ng/mL (6-137)
[2023-11-16 12:10] LABS: Vitamin B12 Reflex MMA if <400 633 pg/mL (239-931)
[2023-11-17 03:36] LABS: Apolipoprotein B 74 mg/dL (<90)
== END ==
LOC: LAB 09:18
PROVIDERS: PCP Family Medicine; Referring Provider Family Medicine; Visit Provider Family Medicine
DX: K31.84 Gastroparesis (principal); F41.1 Generalized anxiety disorder; F41.0 Panic disorder [episodic paroxysmal anxiety]; N94.6 Dysmenorrhea, unspecified; R53.82 Chronic fatigue, unspecified
CPT/HCPCS: 36415; 80053; 80061; 82172; 82607; 82728; 83036; 83540; 83550; 84402; 84403; 84443; 85025